=== PATIENT | male | born 1950 | race Caucasian/White ===

== ENCOUNTER 2017-01-28 10:05 | Emergency (ER) | payer MEDICARE ==
[2017-01-28 10:27] VITALS: RESP 17
--- NOTE | 2017-01-28 11:24 | XR ---
EXAMINATION TYPE: XR finger RT , 3 VIEWS DATE OF EXAM ORDERED: 01/28/2017 HISTORY: Pain. COMPARISON: None. FINDINGS: There is a fishhook in the soft tissues of the distal phalanx of the right index finger. N o osseous lesion is seen. IMPRESSION: PHYSICIAN NOTED IN THE DISTAL PHALANX OF THE RIGHT INDEX FINGER.
--- NOTE | 2017-01-28 11:57 | ED ---
Skin/Abscess/FB HPI <Fredy Collins - Last Filed: 01/28/17 12:16> - General Source: patient, RN notes reviewed, old records reviewed Mode of arrival: ambulatory Limitations: no limitations <Emma Kerns - Last Filed: 02/03/17 09:16> - General Chief complaint: Skin/Abscess/Foreign Body Stated complaint: Fish hook left 1st finger Time Seen by Provider: 01/28/17 11:00 - History of Present Illness Initial comments: 58-year-old male presents emergency Department chief complaint of a fish hook in the pad of his distal right index finger. Patient reports that he is up-to- date on his tetanus shot. Patient denies any decreased range of motion of the finger. Patient reports that he try to pull the plug out but the trenton was too big. Patient denies any other associated symptoms. (Emma Kerns) - Related Data Home Medications Medication Instructions Recorded Confirmed Cetirizine HCl [Zyrtec] 10 mg PO DAILY 01/28/17 01/28/17 Ibuprofen [Motrin] 600 mg PO Q6HR PRN 01/28/17 01/28/17 Insulin Aspart [NovoLOG] 30 unit SQ AC-TID 01/28/17 01/28/17 Insulin Glargine [Lantus] 40 unit SQ BID 01/28/17 01/28/17 Lisinopril [Zestril] 10 mg PO DAILY 01/28/17 01/28/17 Multivitamins, Thera [Multivitamin 1 tab PO DAILY 01/28/17 01/28/17 (formulary)] Vitamin B Complex 1 cap PO DAILY 01/28/17 01/28/17 metFORMIN HCL [Glucophage] 850 mg PO BID 01/28/17 01/28/17 Previous Rx's Medication Instructions Recorded Cephalexin [Keflex] 500 mg PO Q8HR #21 cap 01/28/17 Allergies Allergy/AdvReac Type Severity Reaction Status Date / Time No Known Allergies Allergy Verified 01/28/17 10:39 Review of Systems ROS Other: All systems not noted in ROS Statement are negative. <Fredy Collins - Last Filed: 01/28/17 12:16> ROS Other: All systems not noted in ROS Statement are negative. <Emam Kerns - Last Filed: 02/03/17 09:16> ROS Statement: Those systems with pertinent positive or pertinent negative responses have been documented in the HPI. Past Medical History Past Medical History: Diabetes Mellitus, Hyperlipidemia, Hypertension History of Any Multi-Drug Resistant Organisms: None Reported Past Surgical History: Appendectomy, Orthopedic Surgery, Tonsillectomy Additional Past Surgical History / Comment(s): left shoulder, right knee Past Psychological History: No Psychological Hx Reported Smoking Status: Never smoker Past Alcohol Use History: Rare Past Drug Use History: None Reported <Emma Kerns - Last Filed: 02/03/17 09:16> General Exam <Fredy Collins - Last Filed: 01/28/17 12:16> Limitations: no limitations General appearance: alert, in no apparent distress Head exam: Present: atraumatic, normocephalic, normal inspection Eye exam: Present: normal appearance, PERRL, EOMI. Absent: scleral icterus, conjunctival injection, periorbital swelling ENT exam: Present: normal exam, mucous membranes moist Neck exam: Present: normal inspection. Absent: tenderness, meningismus, lymphadenopathy Respiratory exam: Present: normal lung sounds bilaterally. Absent: respiratory distress, wheezes, rales, rhonchi, stridor Cardiovascular Exam: Present: regular rate, normal rhythm, normal heart sounds. Absent: systolic murmur, diastolic murmur, rubs, gallop, clicks GI/Abdominal exam: Present: soft, normal bowel sounds. Absent: distended, tenderness, guarding, rebound, rigid Extremities exam: Present: full ROM, normal capillary refill, other (Patient has a fishhook adhered to the distal pad of the right index finger.). Absent: normal inspection, tenderness, pedal edema, joint swelling, calf tenderness Back exam: Present: normal inspection Neurological exam: Present: alert, oriented X3, CN II-XII intact Psychiatric exam: Present: normal affect, normal mood Skin exam: Present: warm, dry, intact, normal color. Absent: rash <Emma Kerns - Last Filed: 02/03/17 09:16> - General Exam Comments Initial Comments: 58-year-old male. No acute distress. (Emma Kerns) Medical Decision Making <Fredy Collins - Last Filed: 01/28/17 12:16> - Radiology Data Radiology results: report reviewed <Emma Kerns - Last Filed: 02/03/17 09:16> - Medical Decision Making The patient was seen and examined. The fish hook was removed with the needle over trenton technique without complication. I discussed case with PA and agree with findings as documented. (Fredy Collins) 58-year-old male chief complaint of a fish hook stuck in the right index finger. Patient reports that status is up-to-date. X-ray was reviewed and shows evidence of the trenton within the distal pad. No evidence of bone encroachment. Patient has full range of motion of the finger. Discussed with Dr. Kolb. He did assist on using a needle over trenton technique to remove the fishhook. Patient will be discharged with antibiotics. Patient agrees to treatment plan will comply. Return parameters were discussed. (Emma Kerns) - Radiology Data Evidence of fishhook foreign body within the distal first finger. (Emma Kerns) Disposition <Fredy Collins - Last Filed: 01/28/17 12:16> Time of Disposition: 11:56 <Emma Kerns - Last Filed: 02/03/17 09:16> Clinical Impression: Fish hook injury of finger of right hand Disposition: HOME SELF-CARE Condition: Good Instructions: Soft Tissue Foreign Body (ED) Additional Instructions: Patient was monitored for any signs of infection including redness or swelling or drainage. Take antibiotic prescription. Return to the emergency department if any alarming signs or symptoms occur. Prescriptions: Cephalexin [Keflex] 500 mg PO Q8HR #21 cap Referrals: Raoul Felder DO [Primary Care Provider] - 1-2 days
[2017-01-28 12:28] VITALS: BP 132/78; PULSE 78; TEMP 97.8
== END 2017-01-28 12:27 | disposition home or self-care (01) ==
LOC: EC 10:05
DX: S60.450A Superficial foreign body of right index finger, initial encounter (principal); E11.9 Type 2 diabetes mellitus without complications; E78.5 Hyperlipidemia, unspecified; I10 Essential (primary) hypertension; Z79.4 Long term (current) use of insulin; Z79.84 Long term (current) use of oral hypoglycemic drugs; Z79.899 Other long term (current) drug therapy; W45.8XXA Other foreign body or object entering through skin, initial encounter
CPT/HCPCS: 99283

== ENCOUNTER → 2017-03-16 | Outpatient (CLI) | payer MEDICARE ==
--- NOTE | 2017-03-17 12:28 | CONS ---
This is a 66-year-old male patient diagnosed as having obstructive sleep apnea back in 1995. At that time, the patient underwent a sleep study at [facility] under the care of Dr. Mayes. He was found to have severe MYRA. He declined CPAP therapy. Based on that, he was referred to an ENT and he underwent a UPPP procedure. Subsequently, back in 1996, the patient came in for reevaluation. Repeat sleep study was done and the patient was found to have residual obstructive sleep apnea with an AHI of 20. Nevertheless, he declined any treatment. He is coming in today for worsening sleep condition. His sleep quality has gotten worse as the patient is snoring loud, quits breathing, his sleep is very much fragmented and he is waking up tired and fatigued and sleepy during the day and his symptoms are very much consistent with obstructive sleep apnea. He has also gained significant amount of weight in the order of 40 pounds. He is going to bed around 9:30 p.m. He wakes up around 5:30 a.m. in the morning. He wakes up frequently in the middle of the night. He does not fall asleep while driving his car. No sleep paralysis. No hallucinations or cataplexy. No restlessness in the lower extremities. Past medical history: 1. Obstructive sleep apnea details discussed above. Initial diagnosis established in 1995. The patient is status post UPPP. 2. Obesity. 3. Degenerative arthritis. 4. Diabetes mellitus. Surgical history: Right shoulder and right knee surgery. Drug allergies are none Outpatient Medications: 1. Ibuprofen 600 mg on a prn basis. 2. Zyrtec 10 mg po daily. 3. Multivitamin one tablet po daily. 4. Lantus insulin 42 units twice a day. 5. NovoLog 30 units three times a day with meals. 6. Lisinopril 10 mg po daily. 7. Metformin 850 mg po twice a day. SOCIAL HISTORY: Nonsmoker. No history of alcohol. No history of IV drugs. FAMILY HISTORY: Positive for obstructive sleep apnea, brother and a nephew have sleep apnea. REVIEW OF SYSTEMS: 12 point review of systems was done. All of the positive findings were mentioned above in the history of present illness. BP 122/59. Pulse 90, respiratory rate 16, temperature 97.5, saturation 95% on room air. Weight is 264, height 5 feet 9 inches, BMI 38.9. Neck size is 18 inches. General appearance: Calm, comfortable. HEENT: Short neck. Crowding of posterior pharynx. The patient has absent uvula, absent tonsils and there are obvious signs of surgical UPPP. Lungs clear to auscultation. Heart sounds are regular rate and rhythm, normal S1, S2. Abdomen soft, nontender, no organomegaly. Extremities: No edema, cyanosis or clubbing. IMPRESSION: 1. Symptomatic obstructive sleep apnea. The patient is coming for investigation. 2. Previous uvulopalatopharyngoplasty for symptomatic obstructive sleep apnea performed in 1995. 3. Obesity with interval weight gain. Current BMI is up to 38.9. 4. Diabetes mellitus. 5. Hypertension. 6. Degenerative arthritis. PLAN: 1. Encourage weight loss. 2. Proceed with split night study to confirm the presence of obstructive sleep apnea and treat accordingly. The patient is interested in CPAP therapy. I think he is a good candidate knowing that he is quite symptomatic and quite sleepy and his [place] score is currently at 20. 3. Based on his symptomatic obstructive sleep apnea, we will proceed with a split night study and decide on treatment accordingly. MIMI
== END ==
LOC: SLEEP 15:31
PROVIDERS: ATTEND Internal Medicine Critical Care Medicine
DX: G47.33 Obstructive sleep apnea (adult) (pediatric) (principal); E66.9 Obesity, unspecified; E11.9 Type 2 diabetes mellitus without complications; I10 Essential (primary) hypertension; M19.90 Unspecified osteoarthritis, unspecified site
CPT/HCPCS: 99211

== ENCOUNTER → 2017-05-04 | Outpatient (CLI) | payer MEDICARE ==
--- NOTE | 2017-05-04 15:15 | PN ---
PROGRESS NOTE This is a 66-year-old male patient diagnosed having moderate to severe MYRA with an AHI of 23, worse in a supine body position and worse during REM sleep. The patient was given BiPAP at a pressure of 14/10 cm of water. Today, he is coming in for a followup. He is feeling much better. He is much more alert and awake during the day. He reports improvement in his memory and concentration span and he seems to be benefitting from the treatment. Based on the compliance data, the patient has used the BiPAP 100% of the time and he has achieved more than 4 hours 21/ days. His BiPAP pressure is at 14/10, his leak factor is 18 L/min and his AHI while on treatment is down to 4.8. He is using a Treadwell FX medium-size nodes pillow. He has no specific complaints. His sleep quality is improved. He is working on losing weight. No other complaints, otherwise. His current vital signs are as follows: His blood pressure is 135/72, pulse 87, respirations 16, and temperature is 98.1, weight is 269, and the [place] score is a 7, saturation 94% on room air. GENERAL APPEARANCE: Calm comfortable. HEENT: Short neck. Crowding of posterior pharynx. There is no goiter or neck masses. LUNGS: Clear to auscultation. Heart sounds are regular rate and rhythm. Normal S1, S2. No S3. No murmurs. Abdomen is soft, nontender. No organomegaly. EXTREMITIES: No edema. No cyanosis or clubbing. IMPRESSION: 1. Moderate to severe obstructive sleep apnea with an apnea-hypopnea index of 23, worse during REM. 2. Hypersomnia, improved. 3. Obesity with a body mass index of 38.9. 4. Diabetes. 5. Hypertension. 6. Osteoarthritis. PLAN: The patient is benefitting from the treatment. Continue with BiPAP at the same pressure of 14/10 cm of water. Encourage weight loss. Implement good sleep hygiene measures. Treatment is successful. I will see him back in followup in a year's time, earlier if needed. MMODL / IJN: [id number] /
== END | disposition home or self-care (01) ==
LOC: SLEEP 13:32
PROVIDERS: ATTEND Internal Medicine Critical Care Medicine
DX: G47.33 Obstructive sleep apnea (adult) (pediatric) (principal); E11.9 Type 2 diabetes mellitus without complications; I10 Essential (primary) hypertension; M19.90 Unspecified osteoarthritis, unspecified site; E66.9 Obesity, unspecified; Z68.38 Body mass index [BMI] 38.0-38.9, adult

== ENCOUNTER 2018-01-12 17:27 | Emergency (ER) | payer MEDICARE ==
[2018-01-12 17:48] VITALS: BP 125/60; PULSE 86; RESP 16; TEMP 97.8
[2018-01-12] MEDS ORDERED: LIDOCAINE 1% INJ 10MG/ML (20 ML MDV) SQ STA (18:06)
--- NOTE | 2018-01-12 18:41 | ED ---
General Adult HPI - General Chief complaint: Wound/Laceration Stated complaint: Hand Laceration Time Seen by Provider: 01/12/18 17:56 Source: patient Mode of arrival: ambulatory Limitations: no limitations - History of Present Illness Initial comments: Patient 67-year-old male presenting to the emergency room today with a chief complaint of a laceration to the back and left hand. He does not that he was using a chop saw when he actually got his hand in the way causes laceration. He states tetanus is up-to-date. He denies any complaints or symptoms. States she has full range of motion. Patient denies any recent fever, chills, shortness of breath, chest pain, back pain, abdominal pain, nausea or vomiting, headaches or visual changes, or any other complaints. - Related Data Home Medications Medication Instructions Recorded Confirmed Cetirizine HCl [Zyrtec] 10 mg PO DAILY 01/28/17 01/28/17 Ibuprofen [Motrin] 600 mg PO Q6HR PRN 01/28/17 01/28/17 Insulin Aspart [NovoLOG] 30 unit SQ AC-TID 01/28/17 01/28/17 Insulin Glargine [Lantus] 40 unit SQ BID 01/28/17 01/28/17 Lisinopril [Zestril] 10 mg PO DAILY 01/28/17 01/28/17 Multivitamins, Thera [Multivitamin 1 tab PO DAILY 01/28/17 01/28/17 (formulary)] Vitamin B Complex 1 cap PO DAILY 01/28/17 01/28/17 metFORMIN HCL [Glucophage] 850 mg PO BID 01/28/17 01/28/17 Previous Rx's Medication Instructions Recorded Cephalexin [Keflex] 500 mg PO Q8HR #21 cap 01/28/17 Allergies Allergy/AdvReac Type Severity Reaction Status Date / Time No Known Allergies Allergy Verified 01/28/17 10:39 Review of Systems ROS Statement: Those systems with pertinent positive or pertinent negative responses have been documented in the HPI. ROS Other: All systems not noted in ROS Statement are negative. Past Medical History Past Medical History: Diabetes Mellitus, Hyperlipidemia, Hypertension History of Any Multi-Drug Resistant Organisms: None Reported Past Surgical History: Appendectomy, Orthopedic Surgery, Tonsillectomy Additional Past Surgical History / Comment(s): left shoulder, right knee Past Psychological History: No Psychological Hx Reported Smoking Status: Never smoker Past Alcohol Use History: Rare Past Drug Use History: None Reported General Exam - General Exam Comments Initial Comments: General: The patient is awake and alert, in no distress, and does not appear acutely ill. Neck: The neck is supple, there is no tenderness or JVD. Cardiovascular: There is a regular rate and rhythm. No murmur, rub or gallop is appreciated. Respiratory: Lungs are clear to auscultation, respirations are non-labored, breath sounds are equal. No wheezes, stridor, rales, or rhonchi. Musculoskeletal: Full range motion. Sensation intact. Pulses equal bilaterally 2+. Strength 5/5 in all areas. Neurological: A&O x 3. CN II-XII intact, There are no obvious motor or sensory deficits. Coordination appears grossly intact. Speech is normal. Skin: 2 cm linear laceration to the posterior aspect left hand over the fourth and fifth metacarpal area. No active bleeding. Psychiatric: Normal mood and affect. Limitations: no limitations Course Vital Signs 01/12/18 17:45 Temperature 97.8 F Pulse Rate 86 Respiratory 16 Rate Blood Pressure 125/60 O2 Sat by Pulse 95 Oximetry Medical Decision Making - Medical Decision Making Patient's x-ray was reviewed shows small metallic foreign body at the base of the thumb. No laceration in this area. No other foreign body or dislocation or fracture appreciated. Results were discussed with the patient. Patient's laceration was closed in emergency room her patient advised follow-up in 710 days for suture removal and to watch for signs infection. Disposition Clinical Impression: Laceration Disposition: HOME SELF-CARE Condition: Good Instructions: Laceration (ED) Additional Instructions: Please return to the emergency room in 8-10 days to have sutures removed. Please watch for any signs of infection which may include increased pain, swelling, redness, fever or chills. Please return to emergency room for any signs of infection do occur. Please use clean soap and water over the area to prevent scabbing over your stitches. Please leave wound covered for the first 24-48 hours and then leave wound open to air. Please return to the emergency room for any other concerns. Is patient prescribed a controlled substance at d/c from ED?: No Referrals: Raoul Felder DO [Primary Care Provider] - 1-2 days Time of Disposition: 18:44
--- NOTE | 2018-01-12 18:45 | XR ---
EXAMINATION TYPE: XR hand complete LT DATE OF EXAM: 01/12/2018 COMPARISON: NONE HISTORY: Laceration. Pain TECHNIQUE: 3 views FINDINGS: There is narrowing and spurring at the first carpometacarpal joint. I see no fracture nor d islocation. IMPRESSION: Osteoarthritis at the base of the thumb. No fracture. Soft tissue deformity at the medial aspect of the fifth MP joint consistent with laceration. No foreign body seen.
--- NOTE | 2018-01-14 03:30 | CDI ---
Documentation Clarification OP Dear Juan J HIDALGO PA-C, PAC Please provide hand laceration repair procedure note. Thank you, Fransisco Tolliver Technical Operations Specialist If you have any questions, please contact [employer]r at [phone] [facility]
== END 2018-01-12 19:03 | disposition home or self-care (01) ==
LOC: EC 17:27
DX: S61.422A Laceration with foreign body of left hand, initial encounter (principal); E11.9 Type 2 diabetes mellitus without complications; I10 Essential (primary) hypertension; Z79.4 Long term (current) use of insulin; Z79.899 Other long term (current) drug therapy; W27.0XXA Contact with workbench tool, initial encounter
CPT/HCPCS: 99283; 12001; 73130; J2001

== ENCOUNTER → 2019-04-04 | Outpatient (CLI) | payer MEDICARE ==
--- NOTE | 2019-04-04 19:55 | PN ---
PROGRESS NOTE This is a 68-year-old male patient coming in for an annual compliancy check. His AHI is 23, consistent with moderately severe disease. He is currently on a BiPAP at a pressure of 14/10 cm of water. He is feeling great. He is using a Treadwell FX mask. He is looking for an alternative mask. He is alert and awake during the day. No recent weight gain or weight loss. Based on the compliance data, the patient has been averaging around 7 hours of BiPAP use per night. His BiPAP use for more than 4 hours was 29/30. His tidal volume is 600, respiratory rate 13. AHI is down to 3.7. REVIEW OF SYSTEMS: Fourteen-point review of systems was done. Negative other than things mentioned above in the history of present illness. PHYSICAL EXAMINATION: VITAL SIGNS: BP is 142/71, pulse 84, respirations 16, temperature 98.6. BMI is 40.3, weight 273, height 5 feet 9 inches. GENERAL APPEARANCE: Obese, calm, comfortable. HEAD: Atraumatic, normocephalic. NECK: Mallampati class IV. No goiter or neck masses. LUNGS: Clear to auscultation. HEART: Heart sounds are regular rate and rhythm. Normal S1, S2. No S3, S4. No murmurs. ABDOMEN: Soft, nontender. No organomegaly. EXTREMITIES: No edema. No cyanosis or clubbing. NEUROLOGIC: Alert and oriented x3. No focal neurological deficits. PSYCHIATRIC: Negative for anxiety or depression. IMPRESSION: 1. Moderately severe obstructive sleep apnea with an apnea/hypopnea index of 23, currently on BiPAP at a pressure of 14/10 cm of water. 2. Hypersomnia, recovered. 3. Obesity. 4. Diabetes mellitus. 5. Hypertension. 6. Osteoarthritis. PLAN: 1. Continue BiPAP at the same level of pressure. 2. Offer the patient an AirFit P30i medium-sized nose mask. 3. Encourage weight loss. 4. Implement good sleep hygiene measures. 5. See me back in a year's time. MMODL / IJN: [id number] /
== END ==
LOC: SLEEP 15:59
PROVIDERS: ATTEND Internal Medicine Critical Care Medicine
DX: G47.33 Obstructive sleep apnea (adult) (pediatric) (principal); E66.9 Obesity, unspecified; E11.9 Type 2 diabetes mellitus without complications; I10 Essential (primary) hypertension; M19.90 Unspecified osteoarthritis, unspecified site; Z99.89 Dependence on other enabling machines and devices; Z68.41 Body mass index [BMI] 40.0-44.9, adult

== ENCOUNTER → 2020-02-26 | Outpatient (CLI) | payer OTHER ==
--- NOTE | 2020-02-26 15:58 | US ---
EXAMINATION TYPE: US carotid duplex BILAT DATE OF EXAM: 02/26/2020 COMPARISON: NONE CLINICAL HISTORY: R42 Dizziness and giddiness. Dizziness bruit EXAM MEASUREMENTS: RIGHT: Peak Systolic Velocity (PSV) cm/sec ----- Right CCA: 80.8 ----- Right ICA: 108.4 ----- Right ECA: 130.2 ICA/CCA ratio: 1.3 RIGHT: End Diastole cm/sec ----- Right CCA: 15.4 ----- Right ICA: 34.3 ----- Right ECA: 0 LEFT: Peak Systolic Velocity (PSV) cm/sec ----- Left CCA: 81.7 ----- Left ICA: 101.1 ----- Left ECA: 139.2 ICA/CCA ratio: 1.2 LEFT: End Diastole cm/sec ----- Left CCA: 18.7 ----- Left ICA: 26.8 ----- Left ECA: 11.0 VERTEBRALS (direction of flow): Right Vertebral: Unable to visualize Left Vertebral: Antegrade Rhythm: Normal Weinstein scale images show mild to moderate peripheral plaque centered at right carotid bulb and more mil d plaque at left carotid bulb. Velocity measurements and ratios in the visualized portion of both int ernal carotid arteries remains within normal limits. IMPRESSION: Mild to moderate plaque bilaterally without hemodynamically significant stenosis in ei er internal carotid artery . Criteria for Assigning % of Stenosis / Diameter reduction (Estimation based on the indirect measurements of the internal carotid artery velocities (ICA PSV). 1. Normal (no stenosis)=ICA PSV < 125 cm/s: ratio < 2.0: ICA EDV<40 cm/s. 2. Less than 50% stenosis=ICA PSV < 125 cm/s: ratio < 2.0: ICA EDV<40 cm/s. 3. 50 to 69% stenosis=ICA PSV of 125 to 230 cm/s: ration 2.0 ? 4.0: ICA EDV 40-100 cm/s. 4. Greater than 70% stenosis to near occlusion= ICA PSV > 230 cm/s: ratio > 4.0: ICA EDV > 100 cm/s. 5. Near occlusion= ICA PSV velocities may be low or undetectable: variable ratio and ICA EDV. 6. Total occlusion=unable to detect flow.
== END | disposition home or self-care (01) ==
LOC: RADUSWWP 15:26
PROVIDERS: ATTEND Physician Assistant
DX: R42 Dizziness and giddiness (principal)
CPT/HCPCS: 93880

== ENCOUNTER → 2021-02-06 | Outpatient (CLI) | payer OTHER ==
--- NOTE | 2021-02-06 17:07 | MR ---
EXAMINATION TYPE: MR brain wo con DATE OF EXAM: 02/06/2021 COMPARISON: None HISTORY: Memory loss, and dizziness. TECHNIQUE: Multiplanar, multisequence images of the brain and brainstem is performed without IV contrast. FINDINGS: Diffusion weighted images demonstrate no evidence of a recent infarct or other diffusion ab normality. There is no extra-axial fluid collection or significant white matter signal abnormality. There are mild T2 FLAIR hyperintense foci of the subcortical and periventricular white matter which are nonspecific and may represent sequela of chronic microvascular ischemic change. The ventricular s ystem and cisternal spaces are prominent in size concordant with generalized volume loss, which is co ncordant with patient age. Midline structures demonstrate normal morphology. The craniocervical junction appears within normal limits. The globes are grossly symmetric. The visualized sinuses and mastoid air cells are clear. IMPRESSION: 1. No acute process. 2. Generalized volume loss. 3. Mild T2 FLAIR hyperintense foci of the subcortical and periventricular white matter may represent sequela of chronic microvascular ischemic change.
== END | disposition home or self-care (01) ==
LOC: RADMRIMAIN 09:06
PROVIDERS: ATTEND Physician Assistant
DX: R41.3 Other amnesia (principal)
CPT/HCPCS: 70551

== ENCOUNTER → 2021-03-18 | Outpatient (CLI) | payer OTHER ==
--- NOTE | 2021-03-18 15:47 | NM ---
EXAMINATION TYPE: NM DatScan Brain SPECT DATE OF EXAM: 03/18/2021 COMPARISON: NONE HISTORY: Tremors TECHNIQUE: 10 drops of Lugol's solution was administered 1 hour prior to injection as a thyroid bloc adwoa agent. After the administration of 4.5 mCi I-123 Ioflupane DaTscan. Images obtained [address] injection. SPECT images of the brain were acquired with axial and coronal reconstructions. FINDINGS: The axial SPECT images demonstrate normal background activity. Accounting for head tilt, t here appears to be slight asymmetrically blunted comma-shaped appearance of the left corpus striatum. IMPRESSION: Slightly blunted striatal activity on the left may indicate early changes of idiopathic P arkinson's disease or Parkinsonian syndrome.
== END | disposition home or self-care (01) ==
LOC: RADNMMAIN 10:39
PROVIDERS: ATTEND Psychiatry & Neurology Neurology
DX: R25.1 Tremor, unspecified (principal)
CPT/HCPCS: 78803; A9584

== ENCOUNTER → 2022-08-11 | Outpatient (CLI) | payer OTHER ==
--- NOTE | 2022-08-11 22:19 | PN ---
PROGRESS NOTE This is a progress note from the [facility]. SUBJECTIVE: A 71-year-old male patient, who is coming in after around 3 years of interruption. The patient is known to have obstructive sleep apnea with an AHI of 23, and the patient has been treated with a BiPAP at pressures of 14/10 cm of water. Note that the patient moved to [place] and he was coming only to [place] during summer time. With recent health issues, he is located back to [place] and he left [place]. He is coming to establish himself and he is in need for CPAP/BiPAP supplies. His weight has remained essentially stable at 281. His diabetes is brittle and the patient is requiring higher dose of Lantus insulin for blood sugar control. At same time, the patient was diagnosed having Parkinson disease and he was started on Sinemet. For now, he is going to bed at around 10 p.m., waking up at 3 to 4 a.m. in the morning. He is averaging around 5 to 6 hours of sleep and he takes naps during the day. He is compliant with his BiPAP treatment. Based on the compliance data that was collected over the past 30 days, the patient had utilized his machine 29/ days and he has achieved more than 4 hours 17/ days. He has been averaging around 4.6 hours of BiPAP use per night today, and he is using the Treadwell FX nasal pillows. His leak is in order of 18 L/minute. His generated tidal volume is around 560 with a respiration rate of 14, and temperature of 98, and his AHI is down to 4.9 while on treatment. No major hypersomnia or sleepiness during the day. His treatment has been essentially adequate for now, although he needs to improve his overall compliancy and average number of hours of BiPAP use. PAST MEDICAL HISTORY: Obstructive sleep apnea, obesity, diabetes mellitus, hyperlipidemia, PTSD, depression, hypertension, Parkinson disease. PAST SURGICAL HISTORY: Includes right knee replacement, left shoulder surgery, umbilical hernia repair. DRUG ALLERGIES: Not known. OUTPATIENT MEDICATION LIST: Includes: 1. Levodopa/carbidopa 4 times a day. 2. Lantus insulin 35 units twice a day. 3. NovoLog insulin 35 units with meals. 4. Glimepiride 1 mg b.i.d. 5. Cymbalta 60 mg p.o. daily. 6. Prazosin 2 mg p.o. daily. 7. Melatonin 3 mg p.o. daily. 8. Ibuprofen 600 mg on a p.r.n. basis. 9. Losartan 50 mg p.o. daily. 10.Vitamin B12. 11.Crestor 10 mg p.o. daily. SOCIAL HISTORY: Nonsmoker. No history of alcohol. No history of IV drugs. FAMILY HISTORY: Negative for sleep apnea. REVIEW OF SYSTEMS: A 14-point review of system was done. Positive findings are mentioned in history of present illness. PHYSICAL EXAMINATION: VITAL SIGNS: BP is 146/75, pulse 85, respirations 16, temperature 97.1, saturation 94% on room air. Neck size is 18-3/4 of an inch. Body mass index is 40.9. [place] score is 21. Weight is 281. GENERAL APPEARANCE: Obese, calm, comfortable. HEAD: Atraumatic, normocephalic. NECK: Supple. There is no JVD. No goiter or neck masses. Mallampati class 4. LUNGS: Diminished otherwise clear. HEART: Sounds are regular rate and rhythm. Normal S1, S2. No S3 or S4. No murmurs. ABDOMEN: Soft, nontender. No organomegaly. EXTREMITIES: No edema. No cyanosis or clubbing. NEUROLOGIC: He has some resting tremors. Some limited dementia also is present. No focal neurological deficit. PSYCHIATRIC: History of chronic anxiety, depression, and PTSD. IMPRESSION: 1. Symptomatic obstructive sleep apnea with an AHI of 23, based on the previous sleep study consistent with moderately severe disease, maintained on a BiPAP at a pressure of 14/10 cm of water. Treatment is adequate and needs to increase the number of hours of BiPAP use per night. 2. Chronic hypersomnia, improved with BiPAP therapy. 3. History of Parkinson disease, currently on Sinemet. 4. Diabetes mellitus, currently on Lantus insulin along with glimepiride. 5. History of chronic depression, post-traumatic stress disorder , and nightmares, maintained on a combination of Cymbalta and prazosin. 6. Hypertension. 7. Hyperlipidemia. PLAN: 1. Continue the same BiPAP settings of 14/10 cm of water. 2. Encourage weight loss. 3. Refill supplies including a Treadwell FX medium size nasal pillows and heated tubing and filters. 4. Continue same medications with prazosin 2 mg at bedtime for nightmares. 5. Continue diabetic medication. The patient's HbA1c is around 7. 6. Increase number of hours of BiPAP use per night. 7. See me back in the office in a year's time in followup. Refills were given. His machine is functional. Compliancy check was done. MMODL / RADHAN: [id number] /
== END ==
LOC: SLEEP 15:28
PROVIDERS: ATTEND Internal Medicine Critical Care Medicine
DX: G47.33 Obstructive sleep apnea (adult) (pediatric) (principal); Z99.89 Dependence on other enabling machines and devices; I10 Essential (primary) hypertension; E78.5 Hyperlipidemia, unspecified; E11.9 Type 2 diabetes mellitus without complications; Z79.4 Long term (current) use of insulin; Z79.84 Long term (current) use of oral hypoglycemic drugs; F32.A Depression, unspecified; G20 Parkinson's disease; E66.9 Obesity, unspecified
CPT/HCPCS: 99211

== ENCOUNTER 2023-12-13 07:07 | Day surgery (SDC) | payer MEDICARE, OTHER ==
[2023-12-07 14:54] VITALS: BMI 40.6
[~2023-12-13 07:07] MED LIST: ACETAMINOPHEN TAB 500 MG TAB PO PRN; DEXAMETHASONE SOD PHOSPHATE 4 MG/ML 1 ML VIAL IV ONE; GABAPENTIN 300 MG CAP PO PRN; MELOXICAM 7.5 MG TAB PO PRN; MIDAZOLAM 2 MG/2 ML VIAL IV PRN; ONDANSETRON 4 MG/2 ML VIAL IVP ONE; TRANEXAMIC 1,000 MG/100ML-NACL 1,000 MG in SALINE 1 100ML.BAG IVPB PRN
[2023-12-13 08:26] LABS: Glucose,Whole Blood 369 mg/dL (70-110)
[2023-12-13 08:26] LABS: Glucose,Whole Blood 376 mg/dL (70-110)
[2023-12-13] MEDS: LACTATED RINGERS 1,000 ML IV ONE ×2 (08:35→10:17)
[2023-12-13] MEDS: ACETAMINOPHEN TAB 500 MG TAB PO ONE (08:36)
[2023-12-13] MEDS: ONDANSETRON 4 MG/2 ML VIAL IVP ONE (08:36)
[2023-12-13] MEDS: GABAPENTIN 300 MG CAP PO ONE (08:36)
[2023-12-13] MEDS: MELOXICAM 7.5 MG TAB PO ONE (08:37)
[2023-12-13] MEDS: INSULIN ASPART (NovoLOG) 100 UNIT/ML VIAL SQ ONE ×2 (08:39→11:58)
[2023-12-13] MEDS: DEXAMETHASONE SOD PHOSPHATE 4 MG/ML 1 ML VIAL IVP ONE (08:40)
[2023-12-13] MEDS ORDERED: ONDANSETRON 4 MG/2 ML VIAL IVP PRN (08:41)
[2023-12-13] MEDS ORDERED: NA PHOS,M-B/NA PHOS,DI-BA 133 ML ENEMA RECTAL PRN (08:41)
[2023-12-13] MEDS ORDERED: NALOXONE 0.4 MG/ML 1 ML VIAL IV PRN (08:41)
[2023-12-13] MEDS ORDERED: MAGNESIUM HYDROXIDE 2,400 MG/30 ML CUP PO PRN (08:41)
[2023-12-13] MEDS ORDERED: HYDROmorphone 0.5 MG/0.5 ML SYRINGE IVP PRN ×3 (08:41)
[2023-12-13] MEDS ORDERED: bisacodyL 10 MG SUPP RECTAL PRN (08:41)
[2023-12-13] MEDS ORDERED: HYDROcodone/APAP 7.5-325MG 1 EACH TAB PO PRN (08:44)
[2023-12-13] MEDS ORDERED: SODIUM CHLORIDE 0.9% 1,000 ML IV SCH (08:45)
[2023-12-13] MEDS: MIDAZOLAM 2 MG/2 ML VIAL IVP ONE (08:45)
[2023-12-13] MEDS: fentaNYL (PF) 50 MCG/1 ML VIAL IVP ONE (08:45)
[2023-12-13] MEDS ORDERED: SODIUM CHLORIDE 0.9% (PF) 10 ML VIAL ONE (09:04)
[2023-12-13] MEDS ORDERED: GLYCOPYRROLATE 0.2 MG/ML 2 ML VIAL ONE (09:04)
[2023-12-13] MEDS ORDERED: NEOSTIGMINE 1 MG/ML 10 ML VIAL ONE (09:04)
[2023-12-13] MEDS ORDERED: TRANEXAMIC 1,000 MG/100ML-NACL PREMIX BAG ONE (09:04)
[2023-12-13] MEDS ORDERED: fentaNYL (PF) 50 MCG/ML 2 ML AMP ONE (09:04)
[2023-12-13] MEDS ORDERED: LIDOCAINE 1% INJ 10MG/ML (20 ML MDV) ONE (09:04)
[2023-12-13] MEDS ORDERED: ROCURONIUM 10 MG/ML (5 ML VIAL) IV ONE (09:04)
[2023-12-13] MEDS ORDERED: PROPOFOL 10 MG/ML 20 ML VIAL IV ONE (09:04)
[2023-12-13] MEDS ORDERED: SUCCINYLCHOLINE CHLORIDE 200 MG/10 ML VIAL IV ONE (09:04)
[2023-12-13] MEDS ORDERED: ROPIVACAINE 5 MG/ML 30 ML VIAL ONE (09:04)
[2023-12-13] MEDS: ceFAZolin 3 GM in SODIUM CHLORIDE 0.9% 100 ML IVPB PRN (09:09)
[2023-12-13] MEDS: ceFAZolin 1,000 MG in SODIUM CHLORIDE 0.9% 1,000 ML IRRIGATION ONE (09:09)
[2023-12-13 09:52] LABS: Glucose,Whole Blood 327 mg/dL (70-110)
--- NOTE | 2023-12-13 10:30 | P.OP ---
Date of Procedure: 12/13/23 Preoperative Diagnosis: severe osteoarthritis left knee Postoperative Diagnosis: severe osteoarthritis left knee Procedure(s) Performed: left total knee arthroplasty Implants: [employer] Journey II CR Oxinium cruciate retaining femoral component size 8, left [employer] nonporous tibial baseplate size 6, left [employer] Journey II, CR articular insert, size 9 mm, Size 5-6, left [employer] Journey Shazia II resurfacing patellar component, oval, 35 mm All components were cemented using Palacos R bone cement The articulation is Oxinium on polyethylene Anesthesia: GETA Surgeon: Alexandro Hair [employer] Administrator #1: Ching Cavazos Estimated Blood Loss (ml): 40 Pathology: none sent Condition: stable Disposition: PACU Indications for Procedure: The patient's knee is end-stage, and conservative management has failed. The operation of knee replacement has been discussed at length in the office, as well as potential risks and complications. These are inclusive of, but not limited to: Infection, bleeding, scarring, discomfort, stiffness, blood vessel and nerve damage, need for further surgery, failure to relieve symptoms, persistence, recurrence, or worsening of problems, loosening, dislocation, wear, blood clot, pulmonary embolism, , gait dysfunction, stiffness, and other risks as discussed in the office. Patient elects to proceed and the consent form has been signed. Operative Findings: operative findings are consistent with severe osteoarthritis of the left knee Description of Procedure: The patient was seen in the preoperative area, the consent was reviewed and the operative site was marked with a skin marker. The patient verified the procedure and the operative site. An adductor canal pain catheter and an iPACK block were placed by anesthesia in the preoperative area. The patient was then brought to the operating room and positioned on the operating room table in the supine position. Preoperative antibiotics and a gram of tranexamic acid were given intravenously. A general anesthetic was administered by the anesthesia department. Care was taken to make sure that all pressure points were adequately padded. A tourniquet was placed on the upper thigh and the lower extremity was prepped with ChloraPrep and draped in usual sterile fashion. A universal time-out was then performed which confirmed the patient's name, surgical site, ALLERGIES, and consent. The lower extremity was then exsanguinated and tourniquet was inflated to 250 mmHg. A standard anterior midline approach to the knee was performed. The skin and subcutaneous tissue were sharply dissected down to the patellar tendon. A medial parapatellar arthrotomy was then performed. The knee was then extended, the patellar was everted, and the knee was flexed. The infra-patellar fat pad was removed in order to enhance exposure. The anterior horns of both menisci were excised, and a release was performed to the posterior medial aspect of the knee. On gross visual inspection, there was complete loss of articular cartilage in the medial and patellofemoral joint spaces. There was also significant cartilage damage in the lateral compartment. There were multiple periarticular osteophytes globally about the knee which were then removed with a Ronguer. The femoral canal was then opened with the 9.5 mm intramedullary drill. The 8 mm intramedullary ashish was then inserted into the femoral canal with the distal femoral cutting guide set for 5 of valgus. The distal femoral cutting block was then pinned in place. The intramedullary ashish was then removed, and the distal femur was then cut. The cutting block was then removed and the cut was checked for symmetry. The resected bone was then measured to confirm the appropriate distal femoral resection. Next, the sizing guide was then placed and set for 3 external rotation based off of the epicondylar axis and [place]'s line. Pins were then placed and the drill holes, and the femur was sized with the sizing stylus. The pins were then removed, and the sizing guide was then removed. The spikes of the appropriate size femoral block was then placed into the predrilled holes, and malleted into place. Two 45 mm pins were then placed into the fixation holes on the cutting block. An willie wing was then used to ensure there would be no notching with the anterior cut. The anterior condyles were cut without notching. The anterior chord cut was then performed, followed by the posterior cut, posterior chamfer cut, and the anterior chamfer cut. The collateral ligaments were protected during the entire process. The cutting block was then removed. Any remaining bone and osteophytes were removed from the femur with a Ronguer. Attention was then directed to the tibia. The remaining ACL was removed with a Ronguer, and the tibia was then gently subluxed forward with a large bent knee retractor. Any remaining menisci were excised. The posterior lateral corner was cauterized in order to coagulate the lateral geniculate artery. The extra medullary tibial cutting guide was then placed, set for the appropriate rotation, slope, and depth of resection. The proximal tibia cutting guide was then pinned in place. Proximal tibia was then cut and sized. A curved osteotome was then used to remove any posterior osteophytes from the distal femur. The femoral trial was placed. A narrow saw blade was then used to remove the anterior intracondylar femoral bone. The CR notch trial was then placed. The tibial trial was placed with the appropriate-sized insert. The knee was able to fully extend and flex to 130 and was stable throughout all range of motion. The knee was then extended and the patella was everted. Patella was then measured, and then using an osteotomy guide, the patella was cut at the appropriate level. The patellar component was sized. The patellar drill guide was placed and the patella was drilled. The patella trial was then placed. The knee was then taken through range of motion with the patella trial and the patella tracked normally using the no thumbs technique. The patella trial was then removed. The knee was then flexed and lug holes were drilled through the femoral trial and the femoral trial was then removed. The tibial was then re- exposed, and the tibial broach guide was then pinned in place after it was set for the appropriate rotation to allow for the most coverage without overhang. The tibia was then reamed and broached. The femoral canal was plugged with autologous bone. The cut surfaces of bone were then irrigated with pulsatile lavage. The knee was also irrigated with Irrisept solution. The components were then opened, the cement was mixed. Cement was placed on the backside of the femoral, tibial, and patellar components. Cement was then applied to the tibial surface and pressurized into the surface using finger pressurization technique. The tibial component was then applied and excess cement was removed after it was impacted securely noted to be flush with the cut surface. In similar fashion, the cement was applied to the cut femoral surface, pressurized and using finger pressurization the component was impacted in place. Excess cement was removed. The polyethylene spacer was then implanted and locked into position. Patellar component was then applied in a similar technique and the patellar clamp was used to hold patella in place while the cement hardened. The knee was held in full extension while the cement hardened. Once the cement had fully hardened, the knee was reinspected. Any other cement extrusion was removed the final range of motion testing showed range of motion from 0-130 with excellent stability, both medial and laterally and appropriate alignment of the leg. Patella tracked normally. After the cemented hardened, the tourniquet was released and hemostasis was obtained. A second gram of transexamic acid was given intravenously. The knee was again irrigated. The knee was again taken through range of motion and found to be stable throughout all range of motion of 0-130, and the patella tracked normally. The fascia was then closed with 0 Vicryl followed by #2 strata fix suture. The subcutaneous tissue was closed with 3-0 Vicryl and 3-0 strata fix. Exofin glue was used for the skin and placed with the knee in flexion. After the glue had dried, and Optafoam silver impregnated dressing was applied. A lightly compressive dressing was applied using web roll and Orlin wrap. Patient was then transferred to the stretcher and taken to recovery room in stable condition. Sponge and needle counts were correct. The contract administrative assistant LISET Escobedo was required due the complexity surgery and the need for a skilled surgical nurse practitioner. She assisted in positioning, draping, retraction, and closure of the wound.
[2023-12-13 11:20] VITALS: TEMP 97
[2023-12-13] MEDS: ROPIVACAINE 1,100 MG, SODIUM CHLORIDE 0.9% 500 ML 330 ML, EMPTY PAIN BALL 1 EACH MISCELLANE PRN (11:24)
[2023-12-13 11:36] LABS: Glucose,Whole Blood 327 mg/dL (70-110)
[2023-12-13] MEDS: HYDROmorphone 0.5 MG/0.5 ML SYRINGE IVP PRN (12:08)
--- NOTE | 2023-12-13 12:39 | XR ---
EXAMINATION TYPE: XR knee limited LT DATE OF EXAM: 12/13/2023 COMPARISON: None HISTORY: Knee replacement TECHNIQUE: 2 view left knee FINDINGS: Tibiofemoral components in place. No acute fracture or dislocation is evident. Postsurgical soft tissue changes are evident. IMPRESSION: 1. No acute fracture post knee replacement.
[2023-12-13 13:02] LABS: Glucose,Whole Blood 325 mg/dL (70-110)
[2023-12-13] MEDS: HYDROcodone/APAP 7.5-325MG 1 EACH TAB PO PRN (13:19)
--- NOTE | 2023-12-13 15:42 | P.ANPRN ---
Procedure Note - Anesthesia - Nerve Block Performed Left Adductor Canal Infusion Time Out Performed: Yes (0844) Date of Procedure: 12/13/23 Procedure Start Time: 08:45 Procedure Stop Time: 08:50 Location of Patient: PreOp Indication: Acute Post-Operative Pain, Requested by Surgeon Specifically requested for management of pain by DrJoanne: Alexandro Hair Sedation Type: Sedate with meaningful contact maintained Preparation: Sterile Prep, Sterile Dressing Position: Supine Catheter Depth at Skin (cm): 8 Catheter: None Needle Types: Pajunk Needle Gauge: 18 Ultrasound used to visualize needle placement: Yes Ultrasound used to observe medication spread: Yes Injectate: 0.5% Ropivacaine (see comment for volume) (15cc + 10cc nacl pf) Blood Aspirated: No Pain Paresthesia on Injection Noted: No Resistance on Injection: Normal Image Stored and Saved: Yes Events: Uneventful and Well Tolerated
--- NOTE | 2023-12-13 15:43 | P.ANPRN ---
Procedure Note - Anesthesia - Nerve Block Performed Left iPack Single Time Out Performed: Yes (0844) Date of Procedure: 12/13/23 Procedure Start Time: 08:51 Procedure Stop Time: 08:53 Location of Patient: PreOp Indication: Acute Post-Operative Pain, Requested by Surgeon Specifically requested for management of pain by DrJoanne: Alexandro Hair Sedation Type: Sedate with meaningful contact maintained Preparation: Sterile Prep Position: Supine Catheter: None Needle Types: Pajunk Needle Gauge: 21 Ultrasound used to visualize needle placement: Yes Ultrasound used to observe medication spread: Yes Injectate: 0.5% Ropivacaine (see comment for volume) (15cc +10cc nacl pf) Blood Aspirated: No Pain Paresthesia on Injection Noted: No Resistance on Injection: Normal Image Stored and Saved: Yes Events: Uneventful and Well Tolerated
[2023-12-13] MEDS: LACTATED RINGERS 1,000 ML IV SCH (15:45)
[2023-12-13] MEDS ORDERED: SENNOSIDES-DOCUSATE SODIUM 1 EACH TAB PO SCH (21:00)
[2023-12-13] MEDS ORDERED: ASPIRIN 325 MG TAB PO SCH (21:00)
[2023-12-14 07:52] VITALS: BP 152/76; PULSE 88; RESP 20
== END 2023-12-13 17:10 | disposition home health service (06) ==
LOC: OR 07:07
PROVIDERS: ATTEND Orthopaedic Surgery
DX: M17.12 Unilateral primary osteoarthritis, left knee (principal); G89.18 Other acute postprocedural pain; I10 Essential (primary) hypertension; E11.9 Type 2 diabetes mellitus without complications; M21.062 Valgus deformity, not elsewhere classified, left knee; G20.A1 Parkinson's disease without dyskinesia, without mention of fluctuations; Z82.49 Family history of ischemic heart disease and other diseases of the circulatory system; Z83.3 Family history of diabetes mellitus; Z98.890 Other specified postprocedural states; Z79.899 Other long term (current) drug therapy
CPT/HCPCS: 27447; 64999 ×2; 97161; 64448; 73560; C1713; C1776; C1751; J2250; J0330; J1100; J2710; J0690 ×2; J2405; J2001; J3010 ×2; J2795; J2704; J1170

== ENCOUNTER 2023-12-15 07:37 | Observation (INO) | payer MEDICARE ==
--- NOTE | 2023-12-15 07:58 | ED ---
Recheck HPI - General Chief Complaint: Recheck/Abnormal Lab/Rx Stated Complaint: Post-op L knee pain Time Seen by Provider: 12/15/23 07:44 Source: patient, family, EMS, RN notes reviewed Mode of arrival: EMS Limitations: no limitations - History of Present Illness Initial Comments: This is a 73-year-old male who presents to the emergency department for p ostoperative left knee pain, constipation, and urinary problems. Patient had a total knee arthroplasty with Dr. Hair 2 days ago. He was able to get up and ambulate the following day, and requested discharge home a day early. However, it was advised that he stay in the hospital an extra day. He did exhibit some postoperative urinary retention and was straight cathed. States that this was very painful but he was able to urinate immediately afterwards. However, since then, he has has had problems with urinary retention and is only going very small amounts. He has also been incontinent and is having to wear briefs. Additionally, he has been dealing with postoperative constipation. Currently taking hydrocodone for pain management. Pain got much worse today and he has been unable to ambulate despite taking the hydrocodone. He does also have a ropivacaine pump in place in the left thigh. Family is concerned about taking him home due to his inability to ambulate and are requesting rehab placement. - Related Data Home Medications Medication Instructions Recorded Confirmed Ibuprofen [Motrin] 300 mg PO HS 01/28/17 12/15/23 Carbidopa-Levodopa 25-100 mg 1 tab PO QID 12/07/23 12/15/23 [Sinemet 25-100] DULoxetine HCL [Cymbalta] 60 mg PO DAILY 12/07/23 12/15/23 Losartan [Cozaar] 25 mg PO DAILY 12/07/23 12/15/23 Prazosin HCl [Minipress] 2 mg PO HS 12/07/23 12/15/23 Cyanocobalamin (Vitamin B-12) 1,000 mcg PO DAILY 12/15/23 12/15/23 [Vitamin B-12] Glimepiride [Amaryl] 4 mg PO DAILY 12/15/23 12/15/23 Insulin Aspart [NovoLOG Flexpen] 25 - 35 units SQ AC-TID 12/15/23 12/15/23 Insulin Glargine,Hum.rec.anlog 35 units SQ BID 12/15/23 12/15/23 [Lantus Solostar Pen] Melatonin 10 mg PO HS 12/15/23 12/15/23 Rosuvastatin [Crestor] 20 mg PO HS 12/15/23 12/15/23 Semaglutide [Ozempic] 0.5 mg SQ WE 12/15/23 12/15/23 Previous Rx's Medication Instructions Recorded Aspirin 325 mg PO BID #60 tab 12/13/23 HYDROcodone/APAP 7.5-325MG [[place] 1 - 2 tab PO Q6H PRN #32 tab 12/13/23 7.5-325] Ondansetron Odt [Zofran Odt] 1 tab PO Q8HR PRN #10 tab 12/13/23 Sennosides [Senokot] 2 tab PO DAILY PRN #60 tablet 12/13/23 Allergies Allergy/AdvReac Type Severity Reaction Status Date / Time No Known Allergies Allergy Verified 12/15/23 11:16 Review of Systems ROS Statement: Those systems with pertinent positive or pertinent negative responses have been documented in the HPI. ROS Other: All systems not noted in ROS Statement are negative. Past Medical History Past Medical History: Diabetes Mellitus, Hyperlipidemia, Hypertension, Osteoar thritis (OA), Sleep Apnea/CPAP/BIPAP Additional Past Medical History / Comment(s): Parkinson-cane and walker,uses bipap,incontinent of urine,chronic back pain-3 herniated discs back History of Any Multi-Drug Resistant Organisms: None Reported Past Surgical History: Appendectomy, Orthopedic Surgery, Tonsillectomy Additional Past Surgical History / Comment(s): left shoulder, right knee Past Anesthesia/Blood Transfusion Reactions: No Reported Reaction Additional Past Anesthesia/Blood Transfusion Reaction / Comment(s): no hx blood transfusion Past Psychological History: No Psychological Hx Reported Smoking Status: Never smoker - Past Family History Mother Family Medical History: No Reported History Brother(s) Family Medical History: Deep Vein Thrombosis (DVT) General Exam Limitations: no limitations General appearance: alert, in no apparent distress Head exam: Present: atraumatic, normocephalic, normal inspection Respiratory exam: Present: normal lung sounds bilaterally. Absent: respiratory distress, wheezes, rales, rhonchi, stridor Cardiovascular Exam: Present: regular rate, normal rhythm, normal heart sounds. Absent: systolic murmur, diastolic murmur, rubs, gallop, clicks GI/Abdominal exam: Present: soft, tenderness (Suprapubic), normal bowel sounds. Absent: distended, guarding, rebound, rigid Extremities exam: Present: other (Incision appears clean, dry, and intact. Mild generalized swelling. 2+ DP and PT pulses.) Neurological exam: Present: alert, oriented X3, CN II-XII intact Psychiatric exam: Present: normal affect, normal mood Course Vital Signs 12/15/23 12/15/23 12/15/23 07:42 12:00 15:00 Temperature 98.9 F Pulse Rate 95 72 93 Respiratory 18 18 Rate Blood Pressure 140/59 148/71 137/50 O2 Sat by Pulse 93 L 94 L 94 L Oximetry Medical Decision Making - Medical Decision Making This is a 73 year old male who presents to the emergency department for left knee pain, constipation, and urinary retention. Was pt. sent in by a medical professional or institution? @ -No Did you speak to anyone other than the patient for history? @ -No Did you review nursing and triage notes? @ -Yes, and I agree, it is accurate with regards to the patient's symptoms. Were old charts reviewed? @ -No Differential Diagnosis? @ -Differential Postop Knee Pain: DVT, injury, expected postop pain, infection, this is not meant to be an all- inclusive list. EKG interpreted by me (3pts min.)? @ -EKG interpreted by me demonstrating the following: Sinus rhythm. Ventricula r rate 96 bpm, OR interval 190 ms, QRS duration 113 ms, QTc 410 ms. X-rays interpreted by me (1pt min.)? @ -X-ray of the left knee obtained. My interpretation identifies no acute fractures. KUB x-ray obtained. My interpretation identifies no dilation of the large or small bowel loops. CT interpreted by me (1pt min.)? @ -Not obtained U/S interpreted by me (1pt. min.)? @ -Duplex ultrasound of the left lower extremity obtained. My interpretation identifies no evidence of a DVT. What testing was considered but not performed? (CT, X-rays, U/S, labs)? Why? @ -None What meds were considered but not given? Why? @ -None Did you discuss the management of the patient with other professionals? @ -Saw with [facility] accepts the patient for admission to their service. Did you reconcile home meds? @ -Yes Was smoking cessation discussed for >3mins.? @ -No Was critical care preformed (if so, how long)? @ -No Were there social determinants of health that impacted care today? How? (Homelessness, low income, unemployed, alcoholism, drug addiction, transportation, low edu. Level, literacy, decrease access to med. care, fci, rehab)? @ -No Was there de-escalation of care discussed even if they declined? (Discuss DNR or withdrawal of care, Hospice)? @ -No What co-morbidities impacted this encounter? (DM, HTN, Smoking, COPD, CAD, Cancer, CVA, Hep., AIDS, mental health diagnosis, sleep apnea, morbid obesity)? @ -DM, HLD, HTN, osteoarthritis, Parkinson's disease Was patient admitted / discharged? @ -Admitted. Given the concern for urinary retention, bladder scan was performed. This demonstrated greater than 999 mL of urine. Epperson catheter was inserted and 1400 mL of urine was produced. Urinalysis negative for signs of infection. KUB x-ray demonstrates mild fecal debris in the ascending colon without evidence of fecal retention. X-ray of the left knee demonstrates postsurgical changes without other acute process. Duplex ultrasound of the left lower extremity was negative for signs of DVT. Patient was given pain medication with initial improvement in symptoms. Nursing staff attempted to ambulate the patient, however he was unable to walk or bear any weight. His is concerned about the patient's level of discomfort, which is further complicated by the Parkinson's. States that she cannot take him home due to his inability to ambulate and inquired about rehab placement. We did obtain lab work which demonstrated mild leukocytosis and signs of dehydration. His sugar was also elevated at 385. 5 units of IV insulin were administered along with IV fluids. Patient admitted to orthopedics for postoperative pain and inability to ambulate with tentative plan for rehab placement. Consult placed for medicine for medical management as well as case management for rehab placement. PT/OT consults placed as well. Undiagnosed new problem with uncertain prognosis? @ -None Drug Therapy requiring intensive monitoring for toxicity (Heparin, Nitro, Insulin, Cardizem)? @ -None Were any procedures done? @ -None Diagnosis/symptom? @ -Postop left knee pain, inability to ambulate, urinary retention Acute, or Chronic, or Acute on Chronic? @ -Acute Uncomplicated (without systemic symptoms) or Complicated (systemic symptoms)? @ -Complicated Side effects of treatment? @ -None Exacerbation, Progression, or Severe Exacerbation] @ -Not applicable Poses a threat to life or bodily function? @ -Yes This case was discussed in detail with the attending ED physician, Dr. Thomas. Presentation, findings, and treatment plan discussed in detail as well. - Lab Data Result diagrams: 12/15/23 12:27 12/15/23 12:27 Lab Results 12/15/23 12/15/23 12/15/23 Range/Units 08:20 12:27 12:27 WBC 12.5 H (3.8-10.6) k/uL RBC 3.38 L (4.30-5.90) m/uL Hgb 10.9 L (13.0-17.5) gm/dL Hct 30.8 L (39.0-53.0) % MCV 90.9 (80.0-100.0) fL MCH 32.3 (25.0-35.0) pg MCHC 35.5 (31.0-37.0) g/dL RDW 16.4 H (11.5-15.5) % Plt Count 139 L (150-450) k/uL MPV 8.4 Neutrophils % 73 % Lymphocytes % 14 % Monocytes % 9 % Eosinophils % 1 % Basophils % 0 % Neutrophils # 9.2 H (1.3-7.7) k/uL Lymphocytes # 1.8 (1.0-4.8) k/uL Monocytes # 1.1 H (0-1.0) k/uL Eosinophils # 0.1 (0-0.7) k/uL Basophils # 0.0 (0-0.2) k/uL Hyperchromasia Slight Poikilocytosis Moderate Anisocytosis Slight PT 11.8 (10.0-12.5) sec INR 1.1 (<1.2) APTT 22.7 (22.0-30.0) sec Sodium (137-145) mmol/L Potassium (3.5-5.1) mmol/L Chloride (98-107) mmol/L Carbon Dioxide (22-30) mmol/L Anion Gap mmol/L BUN (9-20) mg/dL Creatinine (0.66-1.25) mg/dL Est GFR (CKD-EPI)AfAm (>60 ml/min/1.73 sqM) Est GFR (CKD-EPI)NonAf (>60 ml/min/1.73 sqM) Glucose (74-99) mg/dL POC Glucose (mg/dL) (70-110) mg/dL POC Glu Ash Conveyor Operator ID Plasma Lactic Acid Jigar (0.7-2.0) mmol/L Calcium (8.4-10.2) mg/dL Phosphorus (2.5-4.5) mg/dL Magnesium (1.6-2.3) mg/dL Total Bilirubin (0.2-1.3) mg/dL AST (17-59) U/L ALT (4-49) U/L Alkaline Phosphatase (38-126) U/L Creatine Kinase (55-170) U/L Total Protein (6.3-8.2) g/dL Albumin (3.5-5.0) g/dL Urine Color Yellow Urine Appearance Clear (Clear) Urine pH 5.5 (5.0-8.0) Ur Specific [place] 1.025 (1.001-1.035) Urine Protein Negative (Negative) Urine Glucose (UA) 4+ H (Negative) Urine Ketones Trace H (Negative) Urine Blood Small H (Negative) Urine Nitrite Negative (Negative) Urine Bilirubin Negative (Negative) Urine Urobilinogen <2.0 (<2.0) mg/dL Ur Leukocyte Esterase Negative (Negative) Urine RBC 6 H (0-5) /hpf Urine WBC 1 (0-5) /hpf Ur Squamous Epith Cells <1 (0-4) /hpf Urine Mucus Rare H (None) /hpf 12/15/23 12/15/23 12/15/23 Range/Units 12:27 12:27 13:26 WBC (3.8-10.6) k/uL RBC (4.30-5.90) m/uL Hgb (13.0-17.5) gm/dL Hct (39.0-53.0) % MCV (80.0-100.0) fL MCH (25.0-35.0) pg MCHC (31.0-37.0) g/dL RDW (11.5-15.5) % Plt Count (150-450) k/uL MPV Neutrophils % % Lymphocytes % % Monocytes % % Eosinophils % % Basophils % % Neutrophils # (1.3-7.7) k/uL Lymphocytes # (1.0-4.8) k/uL Monocytes # (0-1.0) k/uL Eosinophils # (0-0.7) k/uL Basophils # (0-0.2) k/uL Hyperchromasia Poikilocytosis Anisocytosis PT (10.0-12.5) sec INR (<1.2) APTT (22.0-30.0) sec Sodium 130 L (137-145) mmol/L Potassium 4.3 (3.5-5.1) mmol/L Chloride 101 (98-107) mmol/L Carbon Dioxide 21 L (22-30) mmol/L Anion Gap 8 mmol/L BUN 27 H (9-20) mg/dL Creatinine 1.14 (0.66-1.25) mg/dL Est GFR (CKD-EPI)AfAm 73 (>60 ml/min/1.73 sqM) Est GFR (CKD-EPI)NonAf 63 (>60 ml/min/1.73 sqM) Glucose 382 H (74-99) mg/dL POC Glucose (mg/dL) 385 H (70-110) mg/dL POC Glu Ash Conveyor Operator ID Estephanie Santoyo Plasma Lactic Acid Jigar 1.8 (0.7-2.0) mmol/L Calcium 8.2 L (8.4-10.2) mg/dL Phosphorus 3.4 (2.5-4.5) mg/dL Magnesium 1.7 (1.6-2.3) mg/dL Total Bilirubin 1.6 H (0.2-1.3) mg/dL AST 22 (17-59) U/L ALT 16 (4-49) U/L Alkaline Phosphatase 70 (38-126) U/L Creatine Kinase 181 H (55-170) U/L Total Protein 5.9 L (6.3-8.2) g/dL Albumin 3.4 L (3.5-5.0) g/dL Urine Color Urine Appearance (Clear) Urine pH (5.0-8.0) Ur Specific [place] (1.001-1.035) Urine Protein (Negative) Urine Glucose (UA) (Negative) Urine Ketones (Negative) Urine Blood (Negative) Urine Nitrite (Negative) Urine Bilirubin (Negative) Urine Urobilinogen (<2.0) mg/dL Ur Leukocyte Esterase (Negative) Urine RBC (0-5) /hpf Urine WBC (0-5) /hpf Ur Squamous Epith Cells (0-4) /hpf Urine Mucus (None) /hpf - Radiology Data Radiology results: report reviewed, image reviewed Disposition Clinical Impression: Postoperative pain of left knee, Inability to ambulate due to knee, Urinary retention Disposition: ADMITTED IP TO THIS HOSP
[2023-12-15 09:00] LABS: Appearance,Urine Clear (Clear); Bilirubin,Urine Negative (Negative); Blood,Urine Small (Negative); Color,Urine Yellow; Glucose,Urine (UA) 4+ (Negative); Ketones,Urine Trace (Negative); Leukocyte Esterase,Urine Negative (Negative); Mucus,Urine Rare /hpf; Nitrite,Urine Negative (Negative); PH, Urine 5.5 (5.0-8.0); Protein,Urine Negative (Negative); RBC,Urine 6 /hpf (0-5); Specific Gravity,Urine 1.025 (1.001-1.035); Squamous Epithelial Cell,Urine <1 /hpf (0-4); Urobilinogen,Urine <2.0 mg/dL (<2.0); WBC,Urine 1 /hpf (0-5)
--- NOTE | 2023-12-15 09:07 | XR ---
EXAMINATION TYPE: XR KUB DATE OF EXAM: 12/15/2023 COMPARISON: None INDICATION: Constipation TECHNIQUE: Single view abdomen supine view FINDINGS: There is a nonspecific bowel gas pattern. There is predominantly within the colon. Mild fecal debris is in the ascending colon. Psoas margins are normal. No organomegaly is present. Multiple gallstones are evident. IMPRESSION: 1. No suspicious fecal retention. 2. Cholelithiasis
[2023-12-15] MEDS: MORPHINE SULFATE 4 MG/ML SYRINGE IVP STA (09:08)
[2023-12-15] MEDS: SODIUM CHLORIDE 0.9% 1,000 ML IV STA ×2 (09:08→12:21)
[2023-12-15] MEDS: KETOROLAC 15 MG/ML 1 ML VIAL IVP STA (09:08)
--- NOTE | 2023-12-15 09:09 | XR ---
EXAMINATION TYPE: XR knee complete LT DATE OF EXAM: 12/15/2023 COMPARISON: 12/13/2023 HISTORY: Pain TECHNIQUE: 3 view left knee FINDINGS: Tibial femoral components are present. No acute fractures evident. No joint effusion is denisha dent. Residual soft tissue postsurgical changes from recent knee replacement remains present. IMPRESSION: 1. No acute osseous abnormality left knee.
--- NOTE | 2023-12-15 10:51 | US ---
EXAMINATION TYPE: US venous doppler duplex LE LT DATE OF EXAM: 12/15/2023 9:35 AM COMPARISON: NONE CLINICAL INDICATION: Male, 73 years old with history of Postop pain; pain post op knee surgery. SIDE PERFORMED: Left TECHNIQUE: The lower extremity deep venous system is examined utilizing real time linear array sonog murali with graded compression, doppler sonography and color-flow sonography. VESSELS IMAGED: Common Femoral Vein Deep Femoral Vein Greater Saphenous Vein * Femoral Vein Popliteal Vein Small Saphenous Vein * Proximal Calf Veins (* superficial vessels) Left Leg: Negative for DVT IMPRESSION: Grayscale, color doppler, spectral doppler imaging performed of the deep veins of the lo wer extremities. There is normal flow, compressibility, vascular waveforms.
[2023-12-15 12:48] LABS: Anisocytosis Slight; Basophils % (A) 0 %; Eosinophils # (A) 0.1 k/uL (0-0.7); Eosinophils % (A) 1 %; HCT 30.8 % (39.0-53.0); HGB 10.9 gm/dL (13.0-17.5); Hyperchromasia Slight; Lymphocytes # (A) 1.8 k/uL (1.0-4.8); Lymphocytes % (A) 14 %; MCH 32.3 pg (25.0-35.0); MCHC 35.5 g/dL (31.0-37.0); MCV 90.9 fL (80.0-100.0); Mean Platelet Volume 8.4; Monocytes # (A) 1.1 k/uL (0-1.0); Monocytes % (A) 9 %; Neutrophils # (A) 9.2 k/uL (1.3-7.7); Neutrophils % (A) 73 %; Platelet Count 139 k/uL (150-450); Poikilocytosis Moderate; RBC 3.38 m/uL (4.30-5.90); RDW 16.4 % (11.5-15.5); WBC 12.5 k/uL (3.8-10.6)
[2023-12-15 13:07] LABS: INR 1.1 (<1.2); Partial Thromboplastin Time 22.7 sec (22.0-30.0); Prothrombin Time 11.8 sec (10.0-12.5)
[2023-12-15 13:14] LABS: ALT 16 U/L (4-49); AST 22 U/L (17-59); African American GFR (CKD) 73 (>60 ml/min/1.73 sqM); Albumin 3.4 g/dL (3.5-5.0); Alkaline Phosphatase 70 U/L (38-126); Anion Gap 8 mmol/L; Blood Urea Nitrogen 27 mg/dL (9-20); Calcium 8.2 mg/dL (8.4-10.2); Carbon Dioxide 21 mmol/L (22-30); Chloride 101 mmol/L (98-107); Creatine Kinase 181 U/L (55-170); Glucose 382 mg/dL (74-99); Magnesium 1.7 mg/dL (1.6-2.3); Non-African American GFR(CKD) 63 (>60 ml/min/1.73 sqM); Phosphorus 3.4 mg/dL (2.5-4.5); Potassium 4.3 mmol/L (3.5-5.1); Sodium 130 mmol/L (137-145); Total Bilirubin 1.6 mg/dL (0.2-1.3); Total Protein 5.9 g/dL (6.3-8.2)
[2023-12-15 13:28] LABS: Glucose,Whole Blood 385 mg/dL (70-110)
[2023-12-15] MEDS: DULoxetine HCL 60 MG CAPSULE.DR PO STA (13:34)
[2023-12-15] MEDS: INSULIN REGULAR 100 UNIT/ML VIAL (IV) IV ONE (13:35)
[2023-12-15] MEDS ORDERED: NALOXONE 0.4 MG/ML 1 ML VIAL IV PRN (14:54)
[2023-12-15] MEDS ORDERED: ACETAMINOPHEN TAB 325 MG TAB PO PRN (14:54)
[2023-12-15] MEDS ORDERED: HYDROcodone/APAP 5-325MG 1 EACH TAB PO PRN (14:54)
[2023-12-15] MEDS ORDERED: MORPHINE SULFATE 4 MG/ML SYRINGE IV PRN (14:54)
[2023-12-15] MEDS ORDERED: ONDANSETRON 4 MG/2 ML VIAL IVP PRN (14:54)
[2023-12-15] MEDS ORDERED: ONDANSETRON ODT 4 MG TAB PO PRN (14:56)
[2023-12-15] MEDS ORDERED: SENNOSIDES 8.6 MG TAB PO PRN (14:56)
[2023-12-15] MEDS ORDERED: HYDROcodone/APAP 7.5-325MG 1 EACH TAB PO PRN ×2 (14:56→16:07)
[2023-12-15] MEDS: HYDROmorphone 1 MG/ML 1 ML SYRINGE IVP STA (16:10)
[2023-12-15] MEDS: NON FORMULARY DRUG (Semaglutide [Ozempic] 0.25 MG/0.368 ML Pen.Injctr) SQ SCH (16:10)
[2023-12-15] MEDS ORDERED: DEXTROSE 50% SYRINGE 50 ML IVP PRN ×2 (16:26)
--- NOTE | 2023-12-15 16:43 | P.CONS ---
History of Present Illness - Reason for Consult Consult date: 12/15/23 Medical Management Requesting physician: Alexandro Hair - History of Present Illness History of Presenting Illness: Patient is a very pleasant 73-year-old male with a past medical history of hypertension, hyperlipidemia, diabetes mellitus, Parkinson's disease, obstructive sleep apnea, and osteoarthritis. He is status post left total knee arthroplasty secondary to severe osteoarthritis of left knee. Surgical procedure was completed on 12/13/[address] Hair. Initially patient reports he was doing well and able to ambulate and was discharged home, however he returned to the emergency department today secondary to uncontrolled postoperative pain, he is no longer able to ambulate independently and requesting assistance with rehab placement. Patient also reports having other complaints including constipation last reported bowel movement being 12/12/2023, postoperative urinary retention which required insertion of Epperson catheter, and intractable hiccups x 2 days. EKG completed showing normal sinus rhythm at 96 bpm with T wave inversion in lateral leads I and aVL and no previous EKGs available for comparison. Labs were completed and reviewed. CBC showing mild leukocytosis with WBC count of 12.5, hemoglobin 10.9, and platelet count of 139. BMP showing hyponatremia with sodium of 130, hypocarbia with bicarb of 21, and elevated BUN of 27. Blood glucose elevated at 382. Magnesium 1.7. Liver profile showing elevated total bili of 1.6. Above patient was also found to have urinary retention requiring insertion of Epperson catheter in the emergency department. Urinalysis was negative for infection. Patient was admitted under orthopedic surgery team and we were consulted for medical management throughout hospitalization. Review of systems: Pertinent positives and negatives as discussed in HPI, a complete review of systems was performed and all other systems are negative. Physical exam: Vital signs reviewed and stable. General: Nontoxic, no distress and appears stated age. Obese. Derm: Skin warm and dry, normal coloration for ethnicity. Head: Atraumatic, normocephalic and symmetric. Eyes: EOM's intact, no lid lag, and anicteric sclera Mouth: no lip lesions, mucus membranes moist Cardiovascular: regular rate and rhythm with normal S1S2, no murmur, positive posterior tibial pulses bilaterally, and cap refill < 2 seconds. Lungs: Respirations even, regular, and unlabored on room air. Lungs CTA bilaterally, no rhonchi, no rales, no wheezing, and no accessory muscle usage. Abdominal: soft, nontender to palpation, no guarding, no appreciable organomegaly. Epperson catheter in place. Ext: ROM intact. No gross muscle atrophy, no edema, no contractures Neuro: Speech clear, face symmetrical and CN II-XII grossly intact with no noted focal neuro deficits Psych: Alert and oriented to person, place, time, and situation. Appropriate and pleasant affect. Assessment and Plan of Care: Status post left total knee arthroplasty -Management per primary admitting orthopedic surgery team including DVT prophylaxis, pain management, wound/dressing management, weightbearing, PT/OT, and ECF placement. Postoperative urinary retention -Epperson catheter was inserted in the emergency department. -Patient started on Flomax 0.4 mg daily. -Patient will need outpatient follow-up with urologist for voiding challenge Constipation Placed for lactulose 30 g p.o. x 1 dose and patient started on MiraLAX 17 g daily. Intractable hiccups -Reviewed EKG. Order placed for Thorazine 25 mg IM x 1 dose, will monitor for resolution. Insulin-dependent diabetes mellitus with hyperglycemia -Continue Levemir 35 units twice daily along with NovoLog sliding scale. Hypertension Continue daily medication regimen with losartan 25 mg daily. Hyperlipidemia -Continue daily medication regimen with atorvastatin 40 mg nightly. Parkinson's disease Continue daily medication regimen with carbidopa levodopa 25-100 mg tablets 4 times daily. Obstructive sleep apnea Continue CPAP nightly and while napping. Data and imaging reviewed: As stated above in HPI Thank you for allowing us to participate in the care of this pleasant patient. Do not hesitate to contact us with questions. Someone can be reached from the [facility] hospitalist group all hours of the day at [phone] or via perfect serve. Patient was seen independently by Nurse Practitioner. This document was prepared using [employer] dictation software. Please allow for errors in portfolio specialist while rare they do occur. I reviewed the documentation as provided by the EDMAR above, who is the original author of this note. I agree with the documented assessment and plan, with the following changes: none Past Medical History Past Medical History: Diabetes Mellitus, Hyperlipidemia, Hypertension, Osteoarthritis (OA), Sleep Apnea/CPAP/BIPAP Additional Past Medical History / Comment(s): Parkinson-cane and walker,uses bipap,incontinent of urine,chronic back pain-3 herniated discs back History of Any Multi-Drug Resistant Organisms: None Reported Past Surgical History: Appendectomy, Orthopedic Surgery, Tonsillectomy Additional Past Surgical History / Comment(s): left shoulder, right knee Past Anesthesia/Blood Transfusion Reactions: No Reported Reaction Additional Past Anesthesia/Blood Transfusion Reaction / Comm: no hx blood transfusion Past Psychological History: No Psychological Hx Reported Smoking Status: Never smoker - Past Family History Mother Family Medical History: No Reported History Brother(s) Family Medical History: Deep Vein Thrombosis (DVT) Medications and Allergies Home Medications Medication Instructions Recorded Confirmed Type Carbidopa-Levodopa 25-100 mg 1 tab PO QID 12/07/23 12/15/23 History [Sinemet 25-100 mg] DULoxetine HCL [Cymbalta] 60 mg PO DAILY 12/07/23 12/15/23 History Losartan [Cozaar] 25 mg PO DAILY 12/07/23 12/15/23 History Prazosin HCl [Minipress] 2 mg PO HS 12/07/23 12/15/23 History Aspirin 325 mg PO BID #60 tab 12/13/23 12/15/23 Rx HYDROcodone/APAP 7.5-325MG [[place] 1 - 2 tab PO Q6H PRN #32 tab 12/13/23 12/15/23 Rx 7.5-325] Ondansetron Odt [Zofran ODT] 1 tab PO Q8HR PRN #10 tab 12/13/23 12/15/23 Rx Sennosides [Senokot] 2 tab PO DAILY PRN #60 tablet 12/13/23 12/15/23 Rx Cyanocobalamin (Vitamin B-12) 1,000 mcg PO DAILY 12/15/23 12/15/23 History [Vitamin B-12] Glimepiride [Amaryl] 4 mg PO DAILY 12/15/23 12/15/23 History HYDROcodone/APAP 7.5-325MG [[place] 1 - 2 tab PO Q6H PRN #32 tab 12/15/23 Rx 7.5-325] Insulin Aspart [NovoLOG Flexpen] 25 - 35 units SQ AC-TID 12/15/23 12/15/23 History Insulin Glargine,Hum.rec.anlog 35 units SQ BID 12/15/23 12/15/23 History [Lantus Solostar Pen] Melatonin 10 mg PO HS 12/15/23 12/15/23 History Rosuvastatin [Crestor] 20 mg PO HS 12/15/23 12/15/23 History Semaglutide [Ozempic] 0.5 mg SQ WE 12/15/23 12/15/23 History Sennosides [Senokot] 2 tab PO DAILY PRN #60 tablet 12/15/23 Rx Pantoprazole [Protonix] 40 mg PO DAILY 30 Days #30 tab 12/16/23 Rx Tamsulosin [Flomax] 0.4 mg PO [id number] cap 12/16/23 Rx polyethylene glycoL 3350 [Miralax] 17 gm PO DAILY packet 12/16/23 Rx Allergies Allergy/AdvReac Type Severity Reaction Status Date / Time No Known Allergies Allergy Verified 12/15/23 11:16 Physical Exam Osteopathic Statement: *. No significant issues noted on an osteopathic structural exam other than those noted in the History and Physical/Consult. Vitals: Vital Signs Temp Pulse Resp BP Pulse Ox 12/15/23 12:00 72 148/71 94 L 12/15/23 07:42 98.9 F 95 18 140/59 93 L Intake and Output 12/15/23 12/15/23 12/15/23 06:59 14:59 22:59 Output Total 1400 Balance -1400 Output: Urine 1400 Uretheral (Epperson) 1400 Other: Weight 120.202 kg Results CBC & Chem 7: 12/15/23 12:27 12/15/23 12:27 Labs: Abnormal Lab Results - Last 24 Hours (Table) 12/15/23 12/15/23 12/15/23 Range/Units 08:20 12:27 12:27 WBC 12.5 H (3.8-10.6) k/uL RBC 3.38 L (4.30-5.90) m/uL Hgb 10.9 L (13.0-17.5) gm/dL Hct 30.8 L (39.0-53.0) % RDW 16.4 H (11.5-15.5) % Plt Count 139 L (150-450) k/uL Neutrophils # 9.2 H (1.3-7.7) k/uL Monocytes # 1.1 H (0-1.0) k/uL Sodium 130 L (137-145) mmol/L Carbon Dioxide 21 L (22-30) mmol/L BUN 27 H (9-20) mg/dL Glucose 382 H (74-99) mg/dL POC Glucose (mg/dL) (70-110) mg/dL Calcium 8.2 L (8.4-10.2) mg/dL Total Bilirubin 1.6 H (0.2-1.3) mg/dL Creatine Kinase 181 H (55-170) U/L Total Protein 5.9 L (6.3-8.2) g/dL Albumin 3.4 L (3.5-5.0) g/dL Urine Glucose (UA) 4+ H (Negative) Urine Ketones Trace H (Negative) Urine Blood Small H (Negative) Urine RBC 6 H (0-5) /hpf Urine Mucus Rare H (None) /hpf 12/15/23 Range/Units 13:26 WBC (3.8-10.6) k/uL RBC (4.30-5.90) m/uL Hgb (13.0-17.5) gm/dL Hct (39.0-53.0) % RDW (11.5-15.5) % Plt Count (150-450) k/uL Neutrophils # (1.3-7.7) k/uL Monocytes # (0-1.0) k/uL Sodium (137-145) mmol/L Carbon Dioxide (22-30) mmol/L BUN (9-20) mg/dL Glucose (74-99) mg/dL POC Glucose (mg/dL) 385 H (70-110) mg/dL Calcium (8.4-10.2) mg/dL Total Bilirubin (0.2-1.3) mg/dL Creatine Kinase (55-170) U/L Total Protein (6.3-8.2) g/dL Albumin (3.5-5.0) g/dL Urine Glucose (UA) (Negative) Urine Ketones (Negative) Urine Blood (Negative) Urine RBC (0-5) /hpf Urine Mucus (None) /hpf
--- NOTE | 2023-12-15 16:56 | P.HPOR ---
History of Present Illness H&P Date: 12/15/23 This is a 73-year-old male who is admitted for inpatient rehab placement. Patient is status post left total knee arthroplasty and this is postoperative day #2. Patient is seen and evaluated in the emergency room today. Patient states that he has had difficulty ambulating and does not feel that he can put full weight on his left leg. Patient states that his pain has been an issue and he has also had problems with constipation and inability to urinate. Patient denies any injury. Patient's past medical history is significant for diabetes mellitus, hyperlipidemia, hypertension, Parkinson's disease and sleep apnea. Patient denies any fever/chills, chest pain, shortness breath, abdominal pain, numbness, weakness or tingling. Review of Systems See HPI. Past Medical History Past Medical History: Diabetes Mellitus, Hyperlipidemia, Hypertension, Osteoarthritis (OA), Sleep Apnea/CPAP/BIPAP Additional Past Medical History / Comment(s): Parkinson-cane and walker,uses bipap,incontinent of urine,chronic back pain-3 herniated discs back History of Any Multi-Drug Resistant Organisms: None Reported Past Surgical History: Appendectomy, Orthopedic Surgery, Tonsillectomy Additional Past Surgical History / Comment(s): left shoulder, right knee Past Anesthesia/Blood Transfusion Reactions: No Reported Reaction Additional Past Anesthesia/Blood Transfusion Reaction / Comment(s): no hx blood transfusion Past Psychological History: No Psychological Hx Reported Smoking Status: Never smoker - Past Family History Mother Family Medical History: No Reported History Brother(s) Family Medical History: Deep Vein Thrombosis (DVT) Medications and Allergies Home Medications Medication Instructions Recorded Confirmed Type Ibuprofen [Motrin] 300 mg PO HS 01/28/17 12/15/23 History Carbidopa-Levodopa 25-100 mg 1 tab PO QID 12/07/23 12/15/23 History [Sinemet 25-100] DULoxetine HCL [Cymbalta] 60 mg PO DAILY 12/07/23 12/15/23 History Losartan [Cozaar] 25 mg PO DAILY 12/07/23 12/15/23 History Prazosin HCl [Minipress] 2 mg PO HS 12/07/23 12/15/23 History Aspirin 325 mg PO BID #60 tab 12/13/23 12/15/23 Rx HYDROcodone/APAP 7.5-325MG [[place] 1 - 2 tab PO Q6H PRN #32 tab 12/13/23 12/15/23 Rx 7.5-325] Ondansetron Odt [Zofran Odt] 1 tab PO Q8HR PRN #10 tab 12/13/23 12/15/23 Rx Sennosides [Senokot] 2 tab PO DAILY PRN #60 tablet 12/13/23 12/15/23 Rx Cyanocobalamin (Vitamin B-12) 1,000 mcg PO DAILY 12/15/23 12/15/23 History [Vitamin B-12] Glimepiride [Amaryl] 4 mg PO DAILY 12/15/23 12/15/23 History Insulin Aspart [NovoLOG Flexpen] 25 - 35 units SQ AC-TID 12/15/23 12/15/23 History Insulin Glargine,Hum.rec.anlog 35 units SQ BID 12/15/23 12/15/23 History [Lantus Solostar Pen] Melatonin 10 mg PO HS 12/15/23 12/15/23 History Rosuvastatin [Crestor] 20 mg PO HS 12/15/23 12/15/23 History Semaglutide [Ozempic] 0.5 mg SQ WE 12/15/23 12/15/23 History Allergies Allergy/AdvReac Type Severity Reaction Status Date / Time No Known Allergies Allergy Verified 12/15/23 11:16 Physical Examination Vital signs are stable. Patient is in no acute distress and is alert and lluvia ented. Calf is soft and nontender to palpation. Dressing is clean, dry, and intact. Patient is able to actively flex and extend the left knee with some limitation. Patient has full foot and ankle motion without pain or difficulty. Sensation intact. Neurovascular status and circulatory status are intact. Head is normocephalic and atraumatic. Patient moves bilateral upper extremities freely. The right lower extremity exam is within normal limits. Results X-rays of the left knee dated 12/15/2023 show the total knee arthroplasty in good position and alignment. A Venous Doppler of the left lower extremity dated 12/15/2023 is negative for DVT. - Labs Labs: Abnormal Lab Results - Last 24 Hours (Table) 12/15/23 12/15/23 12/15/23 Range/Units 08:20 12:27 12:27 WBC 12.5 H (3.8-10.6) k/uL RBC 3.38 L (4.30-5.90) m/uL Hgb 10.9 L (13.0-17.5) gm/dL Hct 30.8 L (39.0-53.0) % RDW 16.4 H (11.5-15.5) % Plt Count 139 L (150-450) k/uL Neutrophils # 9.2 H (1.3-7.7) k/uL Monocytes # 1.1 H (0-1.0) k/uL Sodium 130 L (137-145) mmol/L Carbon Dioxide 21 L (22-30) mmol/L BUN 27 H (9-20) mg/dL Glucose 382 H (74-99) mg/dL POC Glucose (mg/dL) (70-110) mg/dL Calcium 8.2 L (8.4-10.2) mg/dL Total Bilirubin 1.6 H (0.2-1.3) mg/dL Creatine Kinase 181 H (55-170) U/L Total Protein 5.9 L (6.3-8.2) g/dL Albumin 3.4 L (3.5-5.0) g/dL Urine Glucose (UA) 4+ H (Negative) Urine Ketones Trace H (Negative) Urine Blood Small H (Negative) Urine RBC 6 H (0-5) /hpf Urine Mucus Rare H (None) /hpf 12/15/23 Range/Units 13:26 WBC (3.8-10.6) k/uL RBC (4.30-5.90) m/uL Hgb (13.0-17.5) gm/dL Hct (39.0-53.0) % RDW (11.5-15.5) % Plt Count (150-450) k/uL Neutrophils # (1.3-7.7) k/uL Monocytes # (0-1.0) k/uL Sodium (137-145) mmol/L Carbon Dioxide (22-30) mmol/L BUN (9-20) mg/dL Glucose (74-99) mg/dL POC Glucose (mg/dL) 385 H (70-110) mg/dL Calcium (8.4-10.2) mg/dL Total Bilirubin (0.2-1.3) mg/dL Creatine Kinase (55-170) U/L Total Protein (6.3-8.2) g/dL Albumin (3.5-5.0) g/dL Urine Glucose (UA) (Negative) Urine Ketones (Negative) Urine Blood (Negative) Urine RBC (0-5) /hpf Urine Mucus (None) /hpf H & H 12/15/23 Range/Units 12:27 Hgb 10.9 L (13.0-17.5) gm/dL Hct 30.8 L (39.0-53.0) % Coagulation 12/15/23 Range/Units 12:27 INR 1.1 (<1.2) Result Diagrams: 12/15/23 12:27 12/15/23 12:27 Assessment and Plan (1) S/P total knee arthroplasty Current Visit: Yes Status: Acute Code(s): Z96.659 - PRESENCE OF UNSPECIFIED ARTIFICIAL KNEE JOINT SNOMED Code(s): 5256503338044 (2) Inability to ambulate due to knee Current Visit: Yes Status: Acute Code(s): R26.2 - DIFFICULTY IN WALKING, NOT ELSEWHERE CLASSIFIED SNOMED Code(s): 782531554 (3) Postoperative pain of left knee Current Visit: Yes Status: Acute Code(s): G89.18 - OTHER ACUTE POSTPROCEDURAL PAIN; M25.562 - PAIN IN LEFT KNEE SNOMED Code(s): 5969933873 (4) Urinary retention Current Visit: Yes Status: Acute Code(s): R33.9 - RETENTION OF URINE, UNSPECIFIED SNOMED Code(s): 951315307 Plan: #1 Continue with routine postoperative care and pain control, leave dressing in place for 7 days. #2 Anticoagulation with aspirin. #3 Recommend physical therapy for mobilization. #4 Appreciate input from internal medicine. #5 X-rays are reviewed and total knee arthroplasty is in good position and alignment. Patient will likely need inpatient rehab upon discharge.
[2023-12-15] MEDS: KETOROLAC 15 MG/ML 1 ML VIAL IVP PRN (17:03)
[2023-12-15] MEDS: chlorproMAZINE 25 MG/ML 2 ML AMP IM STA (17:16)
[2023-12-15] MEDS: LACTULOSE 20 GM/30 ML CUP PO ONE (17:19)
[2023-12-15 17:52] LABS: Glucose,Whole Blood 431 mg/dL (70-110)
[2023-12-15] MEDS: CARBIDOPA-LEVODOPA 25-100 MG 1 EACH TAB PO SCH (17:55)
[2023-12-15] MEDS: INSULIN ASPART (NovoLOG) 100 UNIT/ML VIAL SQ SCH (17:55)
[2023-12-15 20:55] LABS: Glucose,Whole Blood 404 mg/dL (70-110)
[2023-12-15] MEDS ORDERED: IBUPROFEN 600 MG TAB PO SCH (21:00)
[2023-12-15] MEDS: ATORVASTATIN 40 MG TAB PO SCH (21:24)
[2023-12-15] MEDS: ASPIRIN 325 MG TAB PO SCH (21:24)
[2023-12-15] MEDS: INSULIN DETEMIR (LEVEMIR) 100 UNIT/ML SYR SQ SCH (21:25)
[2023-12-15] MEDS: MELATONIN 5 MG TABLET PO SCH (21:25)
[2023-12-15] MEDS: INSULIN ASPART (NovoLOG) 100 UNIT/ML VIAL SQ ONE (21:25)
[2023-12-15] MEDS: PRAZOSIN 1 MG CAP PO SCH (21:59)
[2023-12-16 06:00] LABS: Glucose,Whole Blood 322 mg/dL (70-110)
[2023-12-16] MEDS: HYDROcodone/APAP 7.5-325MG 1 EACH TAB PO PRN (06:52)
--- NOTE | 2023-12-16 07:23 | XR ---
EXAMINATION TYPE: XR chest 2V DATE OF EXAM: 12/15/2023 COMPARISON: None INDICATION: Weakness TECHNIQUE: Frontal and lateral views of the chest are obtained. FINDINGS: The heart size is normal. The pulmonary vasculature is normal. The lungs are clear. IMPRESSION: 1. No acute pulmonary process.
[2023-12-16] MEDS: GLIMEPIRIDE 4 MG TAB PO SCH (08:33)
[2023-12-16] MEDS: polyethylene glycoL 3350 17 GM POWD.PACK PO SCH (08:33)
[2023-12-16] MEDS: TAMSULOSIN 0.4 MG CAP.ER.24H PO SCH (08:34)
[2023-12-16] MEDS: LOSARTAN 25 MG TAB PO SCH (08:34)
[2023-12-16] MEDS: CYANOCOBALAMIN 500 MCG TAB PO SCH (08:34)
[2023-12-16] MEDS: DULoxetine HCL 60 MG CAPSULE.DR PO SCH (08:34)
--- NOTE | 2023-12-16 08:52 | P.PN ---
Subjective Progress Note Date: 12/16/23 Principal diagnosis: Status post total left knee arthroplasty. Urinary retention. Inability to ambulate independently. This is a 73-year-old male who is admitted for inpatient rehab placement. Patient is status post left total knee arthroplasty and this is postoperative day #3. Patient is seen and evaluated at bedside today. Patient states that he has had difficulty ambulating and does not feel that he can put full weight on his left leg. Patient states that his pain has been an issue and he has also had problems with constipation and inability to urinate. Patient denies any injury. Patient's past medical history is significant for diabetes mellitus, hyperlipidemia, hypertension, Parkinson's disease and sleep apnea. Patient denies any fever/chills, chest pain, shortness breath, abdominal pain, numbness, weakness or tingling. He currently has a Epperson catheter in place. Objective - Vital Signs Vital signs: Vital Signs Temp 97.6 F 12/16/23 07:25 Pulse 87 12/16/23 08:00 Resp 16 12/16/23 08:00 BP 134/61 12/16/23 07:25 Pulse Ox 92 L 12/16/23 07:25 FiO2 Intake & Output 12/15/23 12/16/23 12/16/23 18:59 06:59 18:59 Output Total 4625 725 725 Balance -4625 -725 -725 Weight 120.202 kg Output: Urine 4625 725 725 Uretheral (Epperson) 1400 Other: Voiding Method Indwelling Catheter Indwelling Catheter - Exam This is a pleasant 73-year-old male in no acute distress. He is alert and oriented at this time. Epperson catheter is in place. Urine is dark orange. Vital signs are stable. Exam of the left lower extremity reveals the dressing is clean, dry and intact. The patient has near full extension of the knee and flexion to 90 degrees. He has full foot and ankle motion without difficulty or pain. Neurovascular status to the lower extremity is intact. - Labs CBC & Chem 7: 12/15/23 12:27 12/15/23 12:27 Labs: Abnormal Lab Results - Last 24 Hours (Table) 12/15/23 12/15/23 12/15/23 Range/Units 08:20 12:27 12:27 WBC 12.5 H (3.8-10.6) k/uL RBC 3.38 L (4.30-5.90) m/uL Hgb 10.9 L (13.0-17.5) gm/dL Hct 30.8 L (39.0-53.0) % RDW 16.4 H (11.5-15.5) % Plt Count 139 L (150-450) k/uL Neutrophils # 9.2 H (1.3-7.7) k/uL Monocytes # 1.1 H (0-1.0) k/uL Sodium 130 L (137-145) mmol/L Carbon Dioxide 21 L (22-30) mmol/L BUN 27 H (9-20) mg/dL Glucose 382 H (74-99) mg/dL POC Glucose (mg/dL) (70-110) mg/dL Calcium 8.2 L (8.4-10.2) mg/dL Total Bilirubin 1.6 H (0.2-1.3) mg/dL Creatine Kinase 181 H (55-170) U/L Total Protein 5.9 L (6.3-8.2) g/dL Albumin 3.4 L (3.5-5.0) g/dL Urine Glucose (UA) 4+ H (Negative) Urine Ketones Trace H (Negative) Urine Blood Small H (Negative) Urine RBC 6 H (0-5) /hpf Urine Mucus Rare H (None) /hpf 12/15/23 12/15/23 12/15/23 Range/Units 13:26 17:50 20:50 WBC (3.8-10.6) k/uL RBC (4.30-5.90) m/uL Hgb (13.0-17.5) gm/dL Hct (39.0-53.0) % RDW (11.5-15.5) % Plt Count (150-450) k/uL Neutrophils # (1.3-7.7) k/uL Monocytes # (0-1.0) k/uL Sodium (137-145) mmol/L Carbon Dioxide (22-30) mmol/L BUN (9-20) mg/dL Glucose (74-99) mg/dL POC Glucose (mg/dL) 385 H 431 H 404 H (70-110) mg/dL Calcium (8.4-10.2) mg/dL Total Bilirubin (0.2-1.3) mg/dL Creatine Kinase (55-170) U/L Total Protein (6.3-8.2) g/dL Albumin (3.5-5.0) g/dL Urine Glucose (UA) (Negative) Urine Ketones (Negative) Urine Blood (Negative) Urine RBC (0-5) /hpf Urine Mucus (None) /hpf 12/16/23 Range/Units 05:57 WBC (3.8-10.6) k/uL RBC (4.30-5.90) m/uL Hgb (13.0-17.5) gm/dL Hct (39.0-53.0) % RDW (11.5-15.5) % Plt Count (150-450) k/uL Neutrophils # (1.3-7.7) k/uL Monocytes # (0-1.0) k/uL Sodium (137-145) mmol/L Carbon Dioxide (22-30) mmol/L BUN (9-20) mg/dL Glucose (74-99) mg/dL POC Glucose (mg/dL) 322 H (70-110) mg/dL Calcium (8.4-10.2) mg/dL Total Bilirubin (0.2-1.3) mg/dL Creatine Kinase (55-170) U/L Total Protein (6.3-8.2) g/dL Albumin (3.5-5.0) g/dL Urine Glucose (UA) (Negative) Urine Ketones (Negative) Urine Blood (Negative) Urine RBC (0-5) /hpf Urine Mucus (None) /hpf Assessment and Plan (1) Parkinsons disease Current Visit: Yes Status: Acute Code(s): G20.A1 - PARKINSON'S DIS W/O DYSKINESIA, W/O MENTION OF FLUCTUATIONS SNOMED Code(s): 09834629 (2) Inability to ambulate due to knee Current Visit: Yes Status: Acute Code(s): R26.2 - DIFFICULTY IN WALKING, NOT ELSEWHERE CLASSIFIED SNOMED Code(s): 368546723 (3) Postoperative pain of left knee Current Visit: Yes Status: Acute Code(s): G89.18 - OTHER ACUTE POSTPROCEDURAL PAIN; M25.562 - PAIN IN LEFT KNEE SNOMED Code(s): 0747675312 (4) S/P total knee arthroplasty Current Visit: Yes Status: Acute Code(s): Z96.659 - PRESENCE OF UNSPECIFIED ARTIFICIAL KNEE JOINT SNOMED Code(s): 5902629147833 (5) Urinary retention Current Visit: Yes Status: Acute Code(s): R33.9 - RETENTION OF URINE, UNSPECIFIED SNOMED Code(s): 995033332 Plan: The clinical findings are discussed with the patient. It is recommended he be evaluated by physical therapy and Occupational Therapy for possible rehab placement. We will ask internal medicine to manage his urinary retention and other medical issues. Plan discharge to inpatient rehab when cleared medically and placement is arranged.
[2023-12-16] MEDS: PANTOPRAZOLE 40 MG/10 ML VIAL IV SCH (09:56)
[2023-12-16 11:28] LABS: Glucose,Whole Blood 430 mg/dL (70-110)
--- NOTE | 2023-12-16 12:53 | P.PN ---
Subjective Progress Note Date: 12/16/23 Hospital Course: Patient is a very pleasant 73-year-old male with a past medical history of hypertension, hyperlipidemia, diabetes mellitus, Parkinson's disease, o bstructive sleep apnea, and osteoarthritis. He is status post left total knee arthroplasty secondary to severe osteoarthritis of left knee. Surgical procedure was completed on 12/13/[address] Hair. Initially patient reports he was doing well and able to ambulate and was discharged home, however he returned to the emergency department today secondary to uncontrolled postoperative pain, he is no longer able to ambulate independently and requesting assistance with rehab placement. Patient also reports having other complaints including constipation last reported bowel movement being 12/12/2023, postoperative urinary retention which required insertion of Epperson catheter, and intractable hiccups x 2 days. EKG completed showing normal sinus rhythm at 96 bpm with T wave inversion in lateral leads I and aVL and no previous EKGs available for comparison. Labs were completed and reviewed. CBC showing mild leukocytosis with WBC count of 12.5, hemoglobin 10.9, and platelet count of 139. BMP showing hyponatremia with sodium of 130, hypocarbia with bicarb of 21, and elevated BUN of 27. Blood glucose elevated at 382. Magnesium 1.7. Liver profile showing elevated total bili of 1.6. Above patient was also found to have urinary retention requiring insertion of Epperson catheter in the emergency department. Urinalysis was negative for infection. Patient was admitted under orthopedic surgery team and we were consulted for medical management throughout hospitalization. Physical exam: Patient seen and fully evaluated at bedside this morning. Patient reports feeling much better this morning, he reports resolution of constipation and full resolution of intractable hiccups after receiving medications. Patient currently reports controlled postoperative pain at this time, awaiting rehab placement. Vital signs reviewed and stable. General: Nontoxic, no distress and appears stated age. Obese. Derm: Skin warm and dry, normal coloration for ethnicity. Head: Atraumatic, normocephalic and symmetric. Eyes: EOM's intact, no lid lag, and anicteric sclera Mouth: no lip lesions, mucus membranes moist Cardiovascular: regular rate and rhythm with normal S1S2, no murmur, positive posterior tibial pulses bilaterally, and cap refill < 2 seconds. Lungs: Respirations even, regular, and unlabored on room air. Lungs CTA bilaterally, no rhonchi, no rales, no wheezing, and no accessory muscle usage. Abdominal: soft, nontender to palpation, no guarding, no appreciable organomegaly. Epperson catheter in place. Ext: ROM intact. No gross muscle atrophy, no edema, no contractures Neuro: Speech clear, face symmetrical and CN II-XII grossly intact with no noted focal neuro deficits Psych: Alert and oriented to person, place, time, and situation. Appropriate and pleasant affect. Assessment and Plan of Care: Status post left total knee arthroplasty -Management per primary admitting orthopedic surgery team including DVT prophylaxis, pain management, wound/dressing management, weightbearing, PT/OT, and ECF placement. Postoperative urinary retention -Epperson catheter was inserted in the emergency department. -Patient started on Flomax 0.4 mg daily. -Patient will need outpatient follow-up with urologist for voiding challenge Constipation. Resolved after dose of lactulose. Recommend patient continue MiraLAX 17 g daily. Intractable hiccups. Patient and patient's at bedside report intractable hiccups since awakening from anesthesia on 12/13/2023, resolved after single IM dose of Thorazine. Insulin-dependent diabetes mellitus with hyperglycemia. Continue Levemir 35 units twice daily along with NovoLog sliding scale. Hypertension. Continue daily medication regimen with losartan 25 mg daily. Hyperlipidemia. Continue daily medication regimen with atorvastatin 40 mg nightly. Parkinson's disease. Continue daily medication regimen with carbidopa levodopa 25-100 mg tablets 4 times daily. Obstructive sleep apnea. Continue CPAP nightly and while napping. Data and imaging reviewed: Vital signs reviewed. Blood pressure 134/61, heart rate 87, respiratory rate 16, temp 97.6 F, and SpO2 of 92% on room air. Patient is cleared from medical perspective for discharge once rehab facility is obtained and discharge order placed by primary admitting orthopedic surgery team. Thank you for allowing us to participate in the care of this pleasant patient. Do not hesitate to contact us with questions. Someone can be reached from the [facility] hospitalist group all hours of the day at [phone] or via perfect serve. Patient was seen independently by Nurse Practitioner. This document was prepared using [employer] dictation software. Please allow for errors in tellers supervisor while rare they do occur. . I reviewed the documentation as provided by the EDMAR above, who is the original author of this note. I agree with the documented assessment and plan, with the following changes: none Objective - Vital Signs Vital signs: Vital Signs Temp 97.6 F 12/16/23 07:25 Pulse 87 12/16/23 08:00 Resp 16 12/16/23 08:00 BP 134/61 12/16/23 07:25 Pulse Ox 92 L 12/16/23 07:25 FiO2 Intake & Output 12/15/23 12/16/23 12/16/23 18:59 06:59 18:59 Output Total 4697 725 725 Balance -4625 -725 -725 Weight 120.202 kg Output: Urine 4608 725 725 Uretheral (Epperson) 1400 Other: Voiding Method Indwelling Catheter Indwelling Catheter - Labs CBC & Chem 7: 12/15/23 12:27 12/15/23 12:27 Labs: Abnormal Lab Results - Last 24 Hours (Table) 12/15/23 12/15/23 12/15/23 Range/Units 08:20 12:27 12:27 WBC 12.5 H (3.8-10.6) k/uL RBC 3.38 L (4.30-5.90) m/uL Hgb 10.9 L (13.0-17.5) gm/dL Hct 30.8 L (39.0-53.0) % RDW 16.4 H (11.5-15.5) % Plt Count 139 L (150-450) k/uL Neutrophils # 9.2 H (1.3-7.7) k/uL Monocytes # 1.1 H (0-1.0) k/uL Sodium 130 L (137-145) mmol/L Carbon Dioxide 21 L (22-30) mmol/L BUN 27 H (9-20) mg/dL Glucose 382 H (74-99) mg/dL POC Glucose (mg/dL) (70-110) mg/dL Calcium 8.2 L (8.4-10.2) mg/dL Total Bilirubin 1.6 H (0.2-1.3) mg/dL Creatine Kinase 181 H (55-170) U/L Total Protein 5.9 L (6.3-8.2) g/dL Albumin 3.4 L (3.5-5.0) g/dL Urine Glucose (UA) 4+ H (Negative) Urine Ketones Trace H (Negative) Urine Blood Small H (Negative) Urine RBC 6 H (0-5) /hpf Urine Mucus Rare H (None) /hpf 12/15/23 12/15/23 12/15/23 Range/Units 13:26 17:50 20:50 WBC (3.8-10.6) k/uL RBC (4.30-5.90) m/uL Hgb (13.0-17.5) gm/dL Hct (39.0-53.0) % RDW (11.5-15.5) % Plt Count (150-450) k/uL Neutrophils # (1.3-7.7) k/uL Monocytes # (0-1.0) k/uL Sodium (137-145) mmol/L Carbon Dioxide (22-30) mmol/L BUN (9-20) mg/dL Glucose (74-99) mg/dL POC Glucose (mg/dL) 385 H 431 H 404 H (70-110) mg/dL Calcium (8.4-10.2) mg/dL Total Bilirubin (0.2-1.3) mg/dL Creatine Kinase (55-170) U/L Total Protein (6.3-8.2) g/dL Albumin (3.5-5.0) g/dL Urine Glucose (UA) (Negative) Urine Ketones (Negative) Urine Blood (Negative) Urine RBC (0-5) /hpf Urine Mucus (None) /hpf 12/16/23 Range/Units 05:57 WBC (3.8-10.6) k/uL RBC (4.30-5.90) m/uL Hgb (13.0-17.5) gm/dL Hct (39.0-53.0) % RDW (11.5-15.5) % Plt Count (150-450) k/uL Neutrophils # (1.3-7.7) k/uL Monocytes # (0-1.0) k/uL Sodium (137-145) mmol/L Carbon Dioxide (22-30) mmol/L BUN (9-20) mg/dL Glucose (74-99) mg/dL POC Glucose (mg/dL) 322 H (70-110) mg/dL Calcium (8.4-10.2) mg/dL Total Bilirubin (0.2-1.3) mg/dL Creatine Kinase (55-170) U/L Total Protein (6.3-8.2) g/dL Albumin (3.5-5.0) g/dL Urine Glucose (UA) (Negative) Urine Ketones (Negative) Urine Blood (Negative) Urine RBC (0-5) /hpf Urine Mucus (None) /hpf
--- NOTE | 2023-12-16 12:58 | P.DS ---
Providers Date of admission: 12/15/23 13:55 Expected date of discharge: 12/16/23 Attending physician: Alexandro Hair Consults: 12/15/23 14:54 Consult Physician Urgent Consulting Provider: Earl Ponce Consult Reason/Comments: Medical management Do you want consulting provider notified?: Yes Primary care physician: [facility] Clinic - Discharge Diagnosis(es) (1) Inability to ambulate due to knee Current Visit: Yes Status: Acute (2) Parkinsons disease Current Visit: Yes Status: Acute (3) Postoperative pain of left knee Current Visit: Yes Status: Acute (4) S/P total knee arthroplasty Current Visit: Yes Status: Acute (5) Urinary retention Current Visit: Yes Status: Acute Hospital Course: This is a 73 year-old male post op left total knee arthroplasty on 12/13/2023. The patient was discharged home same day but had difficulty getting around at home. He presented to the ER with urinary retention, constipation and post op knee pain. He was admitted for skilled rehab placement. The patient was seen and evaluated at bedside today. The patient's pain is well-controlled. The patient has no new complaints today denies any fevers, chills, nausea, vomiting, or shortness of breath. Vital signs are stable. The dressing is clean, dry and intact. Incision looks fine with no erythema or active drainage. Calf is soft and nontender. The patient has full ankle motion without difficulty. The patient's left lower extremity is neurovascularly intact. The patient is orthopedically stable for discharge to skill rehab today. Pertinent Studies: Laboratory Tests 12/15/23 12/16/23 12:27 11:27 WBC 12.5 H RBC 3.38 L Hgb 10.9 L Hct 30.8 L POC Glucose (mg/dL) 430 H Patient Condition at Discharge: Stable Plan - Discharge Summary New Discharge Prescriptions: New HYDROcodone/APAP 7.5-325MG [[place] 7.5-325] 1 - 2 tab PO Q6H PRN #32 tab PRN Reason: Pain Tamsulosin [Flomax] 0.4 mg PO PC-BRKFST cap polyethylene glycoL 3350 [Miralax] 17 gm PO DAILY packet Pantoprazole [Protonix] 40 mg PO DAILY 30 Days #30 tab Sennosides [Senokot] 2 tab PO DAILY PRN #60 tablet PRN Reason: Constipation Continue Losartan [Cozaar] 25 mg PO DAILY DULoxetine HCL [Cymbalta] 60 mg PO DAILY Aspirin 325 mg PO BID #60 tab Sennosides [Senokot] 2 tab PO DAILY PRN #60 tablet PRN Reason: Constipation Rosuvastatin [Crestor] 20 mg PO HS Melatonin 10 mg PO HS Insulin Glargine,Hum.rec.anlog [Lantus Solostar Pen] 35 units SQ BID Glimepiride [Amaryl] 4 mg PO DAILY Cyanocobalamin (Vitamin B-12) [Vitamin B-12] 1,000 mcg PO DAILY Prazosin HCl [Minipress] 2 mg PO HS Carbidopa-Levodopa 25-100 mg [Sinemet 25-100 mg] 1 tab PO QID Ondansetron Odt [Zofran ODT] 1 tab PO Q8HR PRN #10 tab PRN Reason: Nausea Semaglutide [Ozempic] 0.5 mg SQ WE Insulin Aspart [NovoLOG Flexpen] 25 - 35 units SQ AC-TID Discontinued Ibuprofen [Motrin] 300 mg PO HS No Action HYDROcodone/APAP 7.5-325MG [[place] 7.5-325] 1 - 2 tab PO Q6H PRN #32 tab PRN Reason: Pain Discharge Medication List Carbidopa-Levodopa 25-100 mg [Sinemet 25-100 mg] 1 tab PO QID 12/07/23 [History] DULoxetine HCL [Cymbalta] 60 mg PO DAILY 12/07/23 [History] Losartan [Cozaar] 25 mg PO DAILY 12/07/23 [History] Prazosin HCl [Minipress] 2 mg PO HS 12/07/23 [History] Aspirin 325 mg PO BID #60 tab 12/13/23 [Rx] HYDROcodone/APAP 7.5-325MG [[place] 7.5-325] 1 - 2 tab PO Q6H PRN #32 tab 12/13/23 [Rx] Ondansetron Odt [Zofran ODT] 1 tab PO Q8HR PRN #10 tab 12/13/23 [Rx] Sennosides [Senokot] 2 tab PO DAILY PRN #60 tablet 12/13/23 [Rx] Cyanocobalamin (Vitamin B-12) [Vitamin B-12] 1,000 mcg PO DAILY 12/15/23 [History] Glimepiride [Amaryl] 4 mg PO DAILY 12/15/23 [History] HYDROcodone/APAP 7.5-325MG [[place] 7.5-325] 1 - 2 tab PO Q6H PRN #32 tab 12/15/23 [Rx] Insulin Aspart [NovoLOG Flexpen] 25 - 35 units SQ AC-TID 12/15/23 [History] Insulin Glargine,Hum.rec.anlog [Lantus Solostar Pen] 35 units SQ BID 12/15/23 [History] Melatonin 10 mg PO HS 12/15/23 [History] Rosuvastatin [Crestor] 20 mg PO HS 12/15/23 [History] Semaglutide [Ozempic] 0.5 mg SQ WE 12/15/23 [History] Sennosides [Senokot] 2 tab PO DAILY PRN #60 tablet 12/15/23 [Rx] Pantoprazole [Protonix] 40 mg PO DAILY 30 Days #30 tab 12/16/23 [Rx] Tamsulosin [Flomax] 0.4 mg PO PC-BRKFST cap 12/16/23 [Rx] polyethylene glycoL 3350 [Miralax] 17 gm PO DAILY packet 12/16/23 [Rx] Follow up Appointment(s)/Referral(s): Helder Poole MD [STAFF PHYSICIAN] - 1 Week [facility],Clinic [Primary Care Provider] - 1-2 days Alexandro Hair DO [Doctor of Osteopathic Medicine] - 2 Weeks Activity/Diet/Wound Care/Special Instructions: May removed dressing in 1 week after surgery unless saturated. Aspirin 325 mg twice daily for 1 month Weightbearing as tolerated with a walker Follow up in [address] Alexandro Hair. Call [facility] with any questions or concerns, . Discharge Disposition: TRANSFER TO SNF/ECF
[2023-12-16] MEDS: INSULIN ASPART (NovoLOG) 100 UNIT/ML VIAL SQ ONE (13:52)
[2023-12-16 15:06] VITALS: BP 116/61; PULSE 89; RESP 18; TEMP 98.2
== END 2023-12-16 15:20 ==
LOC: EC 07:37 → 4SSUR 13:55
PROVIDERS: ADMIT Orthopaedic Surgery; ATTEND Orthopaedic Surgery
DX: M25.562 Pain in left knee (principal); G89.18 Other acute postprocedural pain; R33.9 Retention of urine, unspecified; K59.09 Other constipation; R06.6 Hiccough; R26.2 Difficulty in walking, not elsewhere classified; E11.65 Type 2 diabetes mellitus with hyperglycemia; E78.5 Hyperlipidemia, unspecified; I10 Essential (primary) hypertension; G20.A1 Parkinson's disease without dyskinesia, without mention of fluctuations; G47.33 Obstructive sleep apnea (adult) (pediatric); Z96.652 Presence of left artificial knee joint; Z79.84 Long term (current) use of oral hypoglycemic drugs; Z79.4 Long term (current) use of insulin; Z79.82 Long term (current) use of aspirin; Z79.899 Other long term (current) drug therapy
CPT/HCPCS: 96375 ×2; 96376; 96361; 96372; 96374; 99285; 36415; 93005; 97161; 97166; 80053; 82550; 83605; 83735; 84100; 85025; 85610; 85730; 81001; 73562; 71046; 74018; 93971; G0378 ×2; J2270; J3230; J1885; C9113

== ENCOUNTER → 2025-01-11 | Outpatient (CLI) | payer OTHER ==
--- NOTE | 2025-01-16 12:29 | NM ---
EXAMINATION TYPE: NM DatScan Brain SPECT DATE OF EXAM: 01/12/2025 COMPARISON: CHITO scan 03/18/2021 CLINICAL INDICATION: Male, 74 years old with history of G20.A1; intermittent tremors, memory loss, un steady gait TECHNIQUE: 10 drops of Lugol's solution was administered 1 hour prior to injection as a thyroid bloc adwoa agent. After the administration of 4.62 mCi I-123 Ioflupane DaTscan. Images obtained 3 hours p ost injection. SPECT images of the brain were acquired with axial and coronal reconstructions. FINDINGS: No significant increased background activity. While we again note very subtle asymmetry in the left s triatal activity, the measured Z scores, the lowest Z score being -1.24 still falls within the expect ed range of normal patient's in an age-matched data base. For this reason, no clear, convincing evide nce of abnormal CHITO scan at this time. IMPRESSION: While we again note very subtle asymmetry in the left striatal activity, the measured Z scores fall w ithin the expected range of normal for the patient's age. No convincing evidence for Parkinson's dise ase or a parkinsonian syndrome at this time based on these findings. [facility], Workstation: [email or web address], 01/16/2025 12:26 PM
== END | disposition home or self-care (01) ==
LOC: RADNMMAIN 10:12
PROVIDERS: ATTEND Psychiatry & Neurology Neurology
DX: G20.A1 Parkinson's disease without dyskinesia, without mention of fluctuations (principal); R41.3 Other amnesia; R26.81 Unsteadiness on feet
CPT/HCPCS: 78803; A9584